=== PATIENT | female | born 1965 | race Caucasian/White ===

== ENCOUNTER → 2016-05-05 | Outpatient (CLI) | payer OTHER ==
[~2016-05-05] MED LIST: ACET-1256 PO; AMOX875T PO; CLR10 PO; CYAN100T PO; CYCL10TA6 PO; ERGO500037 PO; HYDR-3714 PO; LISI-461 PO; MELO15TA4 PO; MTR800 PO; ONDA4TAB10 SL; OXYC1TAB3 PO; PENI-82 PO; PRED20TA PO; PRLSR20 PO; SERT50TA PO; SUCR1TAB29 PO; URC10 PO; VNTHFA/IN INH; ZNTT/150 PO
[2016-05-05 17:46] LABS: ALT/SGPT 40 U/L (12-78); BLOOD UREA NITROGEN 17 mg/dl (7-18); BUN/CREATININE RATIO 20.9 (10-20); CALCIUM 9.8 mg/dl (8.5-10.1); CARBON DIOXIDE 26 mmol/L (21-32); CHLORIDE 103 mmol/L (98-107); CREATININE 0.82 mg/dl (0.60-1.20); GLUCOSE 83 mg/dl (70-99); POTASSIUM 4.5 mmol/L (3.5-5.1); SODIUM 140 mmol/L (136-145)
[2016-05-05 17:49] LABS: ALKALINE PHOSPHATASE 76 U/L (45-117); AST/SGOT 32 U/L (15-37)
== END | disposition home or self-care (01) ==
LOC: C.LABPVFM 16:04
PROVIDERS: ATTEND Nurse Practitioner
DX: M62.838 Other muscle spasm (principal); G25.81 Restless legs syndrome

== ENCOUNTER 2016-05-21 10:42 | Emergency (ER) | payer OTHER ==
[~2016-05-21] VITALS: Ht 162.6 cm; Wt 113.4 kg
[~2016-05-21 10:42] MED LIST changes: -ACET-1256 PO; -AMOX875T PO; -CLR10 PO; -CYAN100T PO; -CYCL10TA6 PO; -ERGO500037 PO; -HYDR-3714 PO; -LISI-461 PO; -MELO15TA4 PO; -ONDA4TAB10 SL; -OXYC1TAB3 PO; -PENI-82 PO; -PRED20TA PO; -PRLSR20 PO; -SERT50TA PO; -SUCR1TAB29 PO; -URC10 PO; -VNTHFA/IN INH; -ZNTT/150 PO
[2016-05-21 10:44] VITALS: TEMP 36.6; Ht 162.6 cm; Wt 113.4 kg
[2016-05-21] MEDS ORDERED: HYDROmorphone INJ 0.5 MG/0.5 ML SYR IV STA (11:03)
[2016-05-21] MEDS ORDERED: ONDANSETRON INJ 2 MG/ML 2 ML VIAL IV STA (11:03)
--- NOTE | 2016-05-21 11:06 | EMERGENCY ROOM VISIT NOTE ---
History First contact with patient: 10:49 Chief Complaint: PAIN (GENERALIZED) Stated Complaint: LT WRIST, BACK PAINS, RING FINGER, CYST History of Present Illness The patient is a 50 year old female who presents to the Emergency Room via private vehicle with complaints of "left wrist, back pains, ring finger, cyst" the patient states that she has developed pain of the left wrist and swelling on the dorsal aspect began yesterday. She does have a history of fracture in this region which occurred years ago. There is been no recent injury or trauma to the area. Patient is right-hand dominant. Patient also points to the dorsal aspect of the left fourth digit/ring finger pointing to a cyst that she was told was a ganglion cyst. She also has a history of kidney stones and points to the right lower back as a location of pain which she believes is a kidney stone. This pain has been persistent for over 1 year now. There is associated nausea. Her urologist is in [facility]. She has had recent trouble urinating. She says the back pain is getting worse 12/27. She denies any dysuria, vaginal discharge, hematuria, lower extremity weakness, bowel or bladder incontinence, numbness or tingling in the genital region, abdominal pain , chest pain, shortness of breath. Family doctor is with [facility]. Review of Systems A complete 10-point Review of Systems was discussed with the patient, with pertinent positives and negatives listed in the History of Present Illness. All remaining Review of Systems questions can be considered negative unless otherwise specified. Past Medical/Surgical History Medical Problems: (1) Asthma (2) HTN (hypertension) (3) Kidney stone Family History Cancer Diabetes mellitus Hypertension Social History Smoking Status: Never Smoker Alcohol Use: none Marital Status: Housing Status: lives with friends Occupation Status: unemployed Current/Historical Medications Scheduled Lisinopril (Zestril), 10 MG PO QAM Omeprazole (Prilosec), 20 MG PO BID Scheduled PRN Albuterol Hfa (Ventolin Hfa), 2-4 PUFFS INH Q6H PRN for SOB/Wheezing Ibuprofen (Ibuprofen), 1 TAB PO BID PRN for Pain Oxycodone Ir (Roxicodone Ir), 1-2 TAB PO Q4H PRN for Pain Ranitidine (Zantac), 150 MG PO BID PRN for Indigestion Allergies Coded Allergies: Morphine (Verified Allergy, Intermediate, HIVES, 05/21/16) Meperidine (Verified Adverse Reaction, Intermediate, NAUSEA, 05/21/16) Physical Exam Vital Signs Date Time Temp Pulse Resp B/P Pulse Ox O2 Delivery O2 Flow Rate FiO2 05/21/16 13:40 56 17 129/52 99 Room Air 05/21/16 10:44 36.6 64 18 157/91 97 Room Air Physical Exam VITAL SIGNS - Vital signs and nursing notes were reviewed. Patient is afebrile , hypertensive 157/91, non-tachycardic and is saturating well on room air 97%. GENERAL -50-year-old female appearing her stated age who is in no acute distress. Communicates well with provider and answers questions appropriately. SKIN - Without rashes. There is edema over the dorsal aspect of the left wrist. HEAD - NC/AT. EYES - Sclera anicteric. Palpebral conjunctiva pink and moist with no injection noted. EARS - No deformities of external structures noted on gross examination bilaterally. NOSE - Midline and without cyanosis. No epistaxis or purulent drainage noted. Septum midline without deviation or septal hematoma noted. MOUTH/OROPHARYNX - Without perioral cyanosis. NECK - Neck with FROM. LUNGS - Chest wall symmetric without accessory muscle use, intercostals retractions, or central cyanosis. Normal vesicular breath sounds CTA B/L. No wheezes, rales, or rhonchi appreciated. CARDIAC - RRR with S1/S2. No murmur, rubs, or gallops appreciated. ABDOMEN - Abdominal contour without pulsations or visible masses. BS normoactive all four quadrants. No tenderness, palpable masses, hepatosplenomegaly, or ascites noted. EXTREMITIES - No clubbing or peripheral cyanosis. No pretibial edema present. Patient is vascular intact. +5/5 strength noted in UE/LE bilaterally. There is tenderness to palpation overlying the left dorsal aspect of the wrist. There is no neurologic or vascular deficit. No bony abnormality noted. Slight edema of the dorsal aspect. Take Up Operator strength intact. MUSCULOSKELETAL: There is tenderness to palpation overlying the right paraspinous musculature and positive CVA tenderness on the right. Spine and left paraspinous musculature unremarkable. NEUROLOGIC - Cranial nerves II through XII grossly intact. Sensory intact to light touch throughout. PSYCH - A&Ox3 and cooperates fully with examiner. Pt is very pleasant and interacts well with examiner. Medical Decision & Procedures ER Provider Diagnostic Interpretation: ABDOMEN AND PELVIS CT WITHOUT CONTRAST CT DOSE: 1931.52 mGy.cm HISTORY: Flank pain Right flank pain, hx kidney stone TECHNIQUE: Multiaxial CT images of the abdomen and pelvis were performed without the use of intravenous and oral contrast according to the standard department stone protocol. COMPARISON STUDY: 01/15/2016 FINDINGS: Lung bases are clear. Liver spleen and pancreas are unremarkable. Kidneys demonstrate several nonobstructing renal calcifications bilaterally. Calcifications is similar in distribution compared to the prior study. There is no evidence for renal hydronephrosis. Multiple pelvic vascular calcifications are present. There is no evidence for an obstructing urinary tract calculus. Uterus is anteflexed. Bowel pattern overall is nonobstructive. The appendix is normal. IMPRESSION: 1. No evidence for an obstructing urinary tract calculus. 2. Normal appendix. 3. Several nonobstructing renal calcifications bilaterally. 4. No acute process Electronically signed by: Jaden Freeman M.D. 05/21/2016 12:30 PM Dictated Date/Time: 05/21/2016 12:24 PM LEFT WRIST 5 VIEWS CLINICAL HISTORY: Left wrist pain and swelling. FINDINGS: 5 views of the left wrist are compared to study dated 02/21/2016. The skeletal structures are well mineralized. No fracture is seen. There is mild negative ulnar variance. Minimal degenerative narrowing is present at the radiocarpal articulation. Mild soft tissue swelling is present around the wrist. IMPRESSION: Mild soft tissue swelling with no fracture identified. Electronically signed by: Almas Powell M.D. 05/21/2016 12:05 PM Dictated Date/Time: 05/21/2016 12:03 PM Laboratory Results 05/21/16 11:24 Red Blood Count 4.10, Mean Corpuscular Volume 84.9, Mean Corpuscular Hemoglobin 28.0, Mean Corpuscular Hemoglobin Concent 33.0, Mean Platelet Volume 9.3, Neutrophils (%) (Auto) 53.4, Lymphocytes (%) (Auto) 31.3, Monocytes (%) (Auto) 11.1, Eosinophils (%) (Auto) 3.3, Basophils (%) (Auto) 0.7, Neutrophils # (Auto ) 2.27, Lymphocytes # (Auto) 1.33, Monocytes # (Auto) 0.47, Eosinophils # (Auto ) 0.14, Basophils # (Auto) 0.03 05/21/16 11:24 Test 05/21/16 11:24 White Blood Count 4.25 K/uL (4.8-10.8) Red Blood Count 4.10 M/uL (4.2-5.4) Hemoglobin 11.5 g/dL (12.0-16.0) Hematocrit 34.8 % (37-47) Mean Corpuscular Volume 84.9 fL (80-100) Mean Corpuscular Hemoglobin 28.0 pg (25-34) Mean Corpuscular Hemoglobin Concent 33.0 g/dl (32-36) Platelet Count 180 K/uL (130-400) Mean Platelet Volume 9.3 fL (7.4-10.4) Neutrophils (%) (Auto) 53.4 % Lymphocytes (%) (Auto) 31.3 % Monocytes (%) (Auto) 11.1 % Eosinophils (%) (Auto) 3.3 % Basophils (%) (Auto) 0.7 % Neutrophils # (Auto) 2.27 K/uL (1.4-6.5) Lymphocytes # (Auto) 1.33 K/uL (1.2-3.4) Monocytes # (Auto) 0.47 K/uL (0.11-0.59) Eosinophils # (Auto) 0.14 K/uL (0-0.5) Basophils # (Auto) 0.03 K/uL (0-0.2) RDW Standard Deviation 43.7 fL (36.4-46.3) RDW Coefficient of Variation 14.1 % (11.5-14.5) Immature Granulocyte % (Auto) 0.2 % Immature Granulocyte # (Auto) 0.01 K/uL (0.00-0.02) Urine Color YELLOW Urine Appearance CLOUDY (CLEAR) Urine pH 5.5 (4.5-7.5) Urine Specific [place] 1.021 (1.000-1.030) Urine Protein NEG (NEG) Urine Glucose (UA) NEG (NEG) Urine Ketones NEG (NEG) Urine Occult Blood NEG (NEG) Urine Nitrite NEG (NEG) Urine Bilirubin NEG (NEG) Urine Urobilinogen NEG (NEG) Urine Leukocyte Esterase NEG (NEG) Urine WBC (Auto) 1-5 /hpf (0-5) Urine RBC (Auto) 0-4 /hpf (0-4) Urine Hyaline Casts (Auto) 1-5 /lpf (0-5) Urine Epithelial Cells (Auto) >30 /lpf (0-5) Urine Bacteria (Auto) 1+ (NEG) Urine Pathogenic Casts /lpf (0) Anion Gap 6.0 mmol/L (3-11) Est Creatinine Clear Calc Drug Dose 104.0 ml/min Estimated GFR () 100.5 Estimated GFR (Non- 86.7 BUN/Creatinine Ratio 15.7 (10-20) Calcium Level 8.8 mg/dl (8.5-10.1) Total Bilirubin 0.3 mg/dl (0.2-1) Aspartate Amino Transf (AST/SGOT) 31 U/L (15-37) Alanine Aminotransferase (ALT/SGPT) 39 U/L (12-78) Alkaline Phosphatase 96 U/L (45-117) Total Protein 7.6 gm/dl (6.4-8.2) Albumin 3.6 gm/dl (3.4-5.0) Globulin 4.0 gm/dl (2.5-4.0) Albumin/Globulin Ratio 0.9 (0.9-2) Medications Administered Medications (Trade) Dose Ordered Sig/Yazmin Route Start Time Stop Time Status Last Admin Dose Admin Hydromorphone HCl (Dilaudid Inj) 0.5 mg NOW STAT IV 05/21/16 11:03 05/21/16 11:05 DC 05/21/16 11:29 0.5 MG Ondansetron HCl (Zofran Inj) 4 mg NOW STAT IV 05/21/16 11:03 05/21/16 11:05 DC 05/21/16 11:29 4 MG Medical Decision Patient was seen and evaluated as above. After obtaining a thorough history and physical examination the above workup was completed. There was slight decrease in white blood cell count of 4.25 as well as mild anemia. CMP was completely unremarkable. Urine revealed 1+ bacteria but this is likely contaminated sample as her crit to [address] of the abdomen and pelvis without contrast were obtained to evaluate for potential stone as the patient does have a history of kidney stones. This was unremarkable for acute stone. She was educated upon these findings. There was reproducible pain in the right lumbar paraspinous musculature that I believe is causing her pain. There was swelling of the dorsal aspect left wrist therefore she was splinted with a wrist lacer. The patient does also have a ganglion cyst on the right fourth digit. She is to follow-up with orthopedic hand specialist regarding this, and was provided the phone number and instructed to call them as soon as possible. She was given 0.5 mg Dilaudid and 4 mg of Zofran here for pain. She did have relief of her pain. I do believe the patient this time is experiencing chronic low back pain, as well as left wrist pain. Rating her previous notes it appears that she has been here before for the same wrist complaint. She was given a short-term prescription for OxyIR. No red flags in the [place] drug monitoring system. I do not suspect any emergent or emergent surgical nature the patient's pain at this time. The patient was educated upon worrisome symptoms for which to return, had questions prior to discharge and was discharged home in good condition. In the evaluation treatment this patient the following differential diagnoses were entertained: Renal calculi, lumbar strain, acute exacerbation of chronic low back pain, left wrist fracture, left wrist contusion, left wrist sprain, ganglion cyst of right fourth finger, among others. [place] Drug Monitoring Program Search Results: patient reviewed within database, no issues identified Impression Primary Impression: Back pain Additional Impressions: Anemia Left wrist pain Departure Information Dispostion Home / Self-Care Condition GOOD Prescriptions Oxycodone Ir (Roxicodone Ir) 5 Mg Tab 1-2 TAB PO Q4H Y for Pain, #15 TAB For Initial Treatment Prov: Bertram Mas PA-C 05/21/16 Referrals Agustina Oliva C.R.N.P (PCP) Darryn Mahoney MD Patient Instructions [facility] Additional Instructions You have been treated in the Emergency Department for Back Pain. You have received pain medicine in the emergency department which impairs your ability to operate a vehicle. It is illegal for you to drive after receiving these medicines. Your blood cell count was a little low today and your slightly anemic. Please follow up with her family doctor to have these repeated. Please follow up with your family doctor regarding the CT scan results. They should be able to have a copy of this. You have been prescribed Oxy IR to be used for pain control. This is a narcotic medication. You cannot drive or consume alcohol while on this medicine. This medicine should only be used for pain that cannot be controlled with over-the- counter pain medicines. Please consider taking a stool softener with this. For pain control, you can use the following [id number] medicines (if >12 yo): - Regular strength (325mg/tab) Tylenol (acetaminophen) 2 tabs every 4-6 hours as needed. Do not exceed 12 tablets in a 24 hour period. Avoid taking more than 4 grams (4000 mg) of Tylenol per day. This includes any other sources of acetaminophen you may take on a regular basis. - Regular strength (200 mg/tab) Advil (ibuprofen) 1-2 tabs every 4-6 hours as needed. Do not exceed a dose of 3200 mg per day. If this is an acute injury, ice can be applied to the area of pain for the first 3 days to help decrease pain and inflammation. After the first 3 days, a heating pad can be used over the area for continued soothing relief. You should schedule a follow-up appointment in 2-3 days with your Primary Care Provider for further evaluation and treatment of your back pain. You have been provided the number for an Orthopaedic Surgeon. You should call this number as soon as possible to establish a follow-up visit from today's Emergency Department visit. Keep the brace/splint in place until evaluated by Orthopedics. Return to the Emergency Department if your current symptoms worsen despite treatment course outlined above, or if you develop any of the following symptoms : intractable pain despite aforementioned treatment course, loss of control of your bowel or bladder, numbness or tingling in your groin, or development of a fever. Please return to the emergency department with any new/concerning symptoms. Problem Qualifiers Primary Impression: Back pain Back pain location: low back pain Chronicity: chronic Back pain laterality : right Sciatica presence: without sciatica Qualified Codes: M54.5 - Low back pain; G89.29 - Other chronic pain Additional Impressions:
[2016-05-21 11:52] LABS: BASO % 0.7 %; BASO ABS # 0.03 K/uL (0-0.2); COMPLETE YES; EOS % 3.3 %; HEMATOCRIT 34.8 % (37-47); IG% 0.2 %; LYMPH % 31.3 %; LYMPH ABS # 1.33 K/uL (1.2-3.4); MEAN CELL VOLUME 84.9 fL (80-100); MEAN PLATELET VOLUME 9.3 fL (7.4-10.4); MONO % 11.1 %; NEUT % 53.4 %; PLATELET COUNT 180 K/uL (130-400); WHITE BLOOD COUNT 4.25 K/uL (4.8-10.8)
[2016-05-21 11:57] LABS: URINE APPEARANCE CLOUDY (CLEAR); URINE BILIRUBIN NEG (NEG); URINE COLOR YELLOW; URINE EPITHELIAL CELL AUTO >30 /lpf (0-5); URINE NITRITE NEG (NEG); URINE PH 5.5 (4.5-7.5); URINE SPECIFIC GRAVITY 1.021 (1.000-1.030); UROBILINOGEN NEG (NEG); ZZUR CULT IF INDIC CLEAN CATCH YES
--- NOTE | 2016-05-21 12:06 | DIAGNOSTIC IMAGING REPORT ---
LEFT WRIST 5 VIEWS CLINICAL HISTORY: Left wrist pain and swelling. FINDINGS: 5 views of the left wrist are compared to study dated 02/21/2016. The skeletal structures are well mineralized. No fracture is seen. There is mild negative ulnar variance. Minimal degenerative narrowing is present at the radiocarpal articulation. Mild soft tissue swelling is present around the wrist. IMPRESSION: Mild soft tissue swelling with no fracture identified. Electronically signed by: Almas Powell M.D. 05/21/2016 12:05 PM Dictated Date/Time: 05/21/2016 12:03 PM
[2016-05-21 12:08] LABS: BUN/CREATININE RATIO 15.7 (10-20); CALCIUM 8.8 mg/dl (8.5-10.1); CREATININE 0.79 mg/dl (0.60-1.20); POTASSIUM 4.1 mmol/L (3.5-5.1)
[2016-05-21 12:11] LABS: ALB/GLOB RATIO 0.9 (0.9-2)
[2016-05-21 12:13] LABS: MANUAL MICROSCOPIC REQUIRED? NO; REVIEW REQ? YES
--- NOTE | 2016-05-21 12:31 | DIAGNOSTIC IMAGING REPORT ---
ABDOMEN AND PELVIS CT WITHOUT CONTRAST CT DOSE: 1931.52 mGy.cm HISTORY: Flank pain Right flank pain, hx kidney stone TECHNIQUE: Multiaxial CT images of the abdomen and pelvis were performed without the use of intravenous and oral contrast according to the standard department stone protocol. COMPARISON STUDY: 01/15/2016 FINDINGS: Lung bases are clear. Liver spleen and pancreas are unremarkable. Kidneys demonstrate several nonobstructing renal calcifications bilaterally. Calcifications is similar in distribution compared to the prior study. There is no evidence for renal hydronephrosis. Multiple pelvic vascular calcifications are present. There is no evidence for an obstructing urinary tract calculus. Uterus is anteflexed. Bowel pattern overall is nonobstructive. The appendix is normal. IMPRESSION: 1. No evidence for an obstructing urinary tract calculus. 2. Normal appendix. 3. Several nonobstructing renal calcifications bilaterally. 4. No acute process Electronically signed by: Jaden Freeman M.D. 05/21/2016 12:30 PM Dictated Date/Time: 05/21/2016 12:24 PM
[2016-05-21] MEDS ORDERED: OXYC1TAB3 PO (12:55)
[2016-05-21 13:40] VITALS: BP 129/52; PULSE 56; O2SAT 99
[2016-09-18] MEDS ORDERED: HYDR-3714 PO (07:49)
[2016-10-18] MEDS ORDERED: ERGO500037 PO (10:39)
[2017-01-01] MEDS ORDERED: CYAN100T PO (10:39)
[2017-01-01] MEDS ORDERED: CLR10 PO (13:01)
[2017-01-01] MEDS ORDERED: PRLSR20 PO (14:19)
[2017-01-01] MEDS ORDERED: VNTHFA/IN INH (14:33)
[2017-01-01] MEDS ORDERED: CYCL10TA6 PO (15:46)
[2017-01-01] MEDS ORDERED: LISI-461 PO (15:56)
[2017-01-01] MEDS ORDERED: ZNTT/150 PO (16:35)
== END 2016-05-21 13:51 | disposition home or self-care (01) ==
LOC: C.EDB 10:43 → C.EDC 13:51
DX: M54.5 Low back pain (principal); G89.29 Other chronic pain; M25.532 Pain in left wrist; Z87.442 Personal history of urinary calculi; J45.909 Unspecified asthma, uncomplicated; I10 Essential (primary) hypertension; Z79.899 Other long term (current) drug therapy; D64.9 Anemia, unspecified

== ENCOUNTER → 2016-06-09 | Outpatient (CLI) | payer OTHER ==
[~2016-06-09] MED LIST changes: +ACET-1256 PO; +ALBINS/ INH; +AMOX875T PO; +CEFP100T7 PO; +CLR10 PO; +CYAN100T PO; +CYCL10TA6 PO; +DTRSR5 PO; +ERGO500037 PO; +HYDR-3714 PO; +HYDR-5688 PO; +LISI-461 PO; +MELO15TA4 PO; +ONDA4TAB10 SL; +ONDA4TAB46 SL; +OXYC1CAP5 PO; +OXYC1TAB3 PO; +PENI-82 PO; +PRED20TA PO; +PRLSR20 PO; +SERT50TA PO; +SUCR1TAB29 PO; +TAMS0.4C38 PO; +TRAM-10 PO; +URC10 PO; +VNTHFA/IN INH; +ZNTT/150 PO
== END | disposition home or self-care (01) ==
LOC: C.LABPVFM 11:16
PROVIDERS: ATTEND Nurse Practitioner
DX: J02.9 Acute pharyngitis, unspecified (principal)

== ENCOUNTER → 2016-08-24 | Outpatient (CLI) | payer OTHER ==
--- NOTE | 2016-08-24 09:15 | DIAGNOSTIC IMAGING REPORT ---
ABDOMEN 2VIEW W/PA CHEST RTN CLINICAL HISTORY: Right flank pain COMPARISON STUDY: 03/05/2016 FINDINGS: Erect chest reveals no free intraperitoneal air. There is no focal pulmonary consolidation. Erect and supine views the abdomen reveal no abnormally dilated loops of large or small bowel. There are no transition zones indicate bowel obstruction. The renal shadows are partially obscured overlying bowel gas. There is a probable 3 mm right renal calculus. There is also a suspected 2 mm left renal calculus. There are multiple nonspecific pelvic basin calcifications. If there is clinical concern over the presence of a right ureteral calculus, then a CT scan could be obtained in follow-up. IMPRESSION: 1. Suspected bilateral nephrolithiasis 2. No evidence of bowel obstruction. No evidence of free air 3. Multiple nonspecific right pelvic basin calcifications. Electronically signed by: Irwin Brown M.D. 08/24/2016 9:14 AM Dictated Date/Time: 08/24/2016 9:12 AM
== END | disposition home or self-care (01) ==
LOC: C.RADPV 08:43
PROVIDERS: ATTEND Family Medicine
DX: R10.9 Unspecified abdominal pain (principal)

== ENCOUNTER 2016-08-29 10:12 | Emergency (ER) | payer OTHER ==
[~2016-08-29] VITALS: Ht 162.6 cm; Wt 120.9 kg
[~2016-08-29 10:12] MED LIST changes: -ACET-1256 PO; -ALBINS/ INH; -AMOX875T PO; -CEFP100T7 PO; -CLR10 PO; -CYAN100T PO; -CYCL10TA6 PO; -DTRSR5 PO; -ERGO500037 PO; -HYDR-3714 PO; -HYDR-5688 PO; -LISI-461 PO; -MELO15TA4 PO; -ONDA4TAB10 SL; -ONDA4TAB46 SL; -OXYC1CAP5 PO; -PENI-82 PO; -PRED20TA PO; -PRLSR20 PO; -SERT50TA PO; -SUCR1TAB29 PO; -TAMS0.4C38 PO; -TRAM-10 PO; -URC10 PO; -VNTHFA/IN INH; -ZNTT/150 PO
[2016-08-29 10:23] VITALS: TEMP 36.8; Ht 162.6 cm; Wt 120.9 kg
[2016-08-29] MEDS ORDERED: ONDANSETRON INJ 2 MG/ML 2 ML VIAL IV STA (10:38)
[2016-08-29] MEDS ORDERED: SODIUM CHLORIDE 0.9% 1000ML 1,000 ML IV STA (10:38)
[2016-08-29] MEDS ORDERED: PENI-82 PO (10:39)
[2016-08-29] MEDS ORDERED: CYCL10TA6 PO (10:39)
[2016-08-29] MEDS ORDERED: HYDROmorphone INJ 0.5 MG/0.5 ML SYR IV ONE ×2 (10:45→11:45)
[2016-08-29 10:50] LABS: BASO % 0.6 %; BASO ABS # 0.04 K/uL (0-0.2); COMPLETE YES; EOS % 2.6 %; IG% 1.1 %; LYMPH % 28.1 %; LYMPH ABS # 1.81 K/uL (1.2-3.4); MEAN CELL VOLUME 79.8 fL (80-100); MEAN CORPUSCULAR HEMOGLOBIN 24.8 pg (25-34); MEAN CORPUSCULAR HGB CONC 31.1 g/dl (32-36); MEAN PLATELET VOLUME 9.1 fL (7.4-10.4); MONO % 9.3 %; NEUT % 58.3 %; PLATELET COUNT 235 K/uL (130-400); RED BLOOD COUNT 4.51 M/uL (4.2-5.4); WHITE BLOOD COUNT 6.44 K/uL (4.8-10.8)
[2016-08-29 11:03] LABS: URINE APPEARANCE CLEAR (CLEAR); URINE BILIRUBIN NEG (NEG); URINE COLOR DK YELLOW; URINE EPITHELIAL CELL AUTO >30 /lpf (0-5); URINE NITRITE NEG (NEG); URINE SPECIFIC GRAVITY 1.032 (1.000-1.030); UROBILINOGEN NEG (NEG); ZZUR CULT IF INDIC CLEAN CATCH NO
[2016-08-29 11:08] LABS: MANUAL MICROSCOPIC REQUIRED? NO; REVIEW REQ? YES
[2016-08-29 11:08] LABS: BUN/CREATININE RATIO 21.7 (10-20); CALCIUM 8.8 mg/dl (8.5-10.1); CREATININE 0.85 mg/dl (0.60-1.20)
[2016-08-29 11:15] LABS: URINE MUCUS PRESENT (NONE PRSENT)
--- NOTE | 2016-08-29 11:51 | DIAGNOSTIC IMAGING REPORT ---
ABDOMEN AND PELVIS CT WITHOUT CONTRAST CT DOSE: 1607.15 mGy.cm HISTORY: Severe right flank pain. TECHNIQUE: Multiaxial CT images of the abdomen and pelvis were performed without contrast. COMPARISON STUDY: Abdomen and pelvis CT 05/21/2016. FINDINGS: The lung bases are clear. No pneumoperitoneum. No pneumatosis. No fractures within the visualized osseous structures. Hepatic steatosis. The unenhanced spleen, pancreas, and adrenal glands are unremarkable. The gallbladder is not identified and likely surgically absent. There are few small bilateral renal calculi, unchanged. No hydronephrosis. The uterus and bladder are unremarkable. No retroperitoneal lymphadenopathy. Suboptimal evaluation for bowel pathology due to the lack of intravenous and oral contrast. However, there is no definite bowel wall thickening or obstruction. Normal appendix. IMPRESSION: 1. Bilateral nephrolithiasis. No hydronephrosis. 2. No definite bowel wall thickening or obstruction. 3. Normal appendix. Electronically signed by: Andrade Parr M.D. 08/29/2016 11:50 AM Dictated Date/Time: 08/29/2016 11:43 AM
[2016-08-29 12:35] VITALS: BP 126/80; PULSE 86; O2SAT 96
--- NOTE | 2016-08-29 13:57 | EMERGENCY ROOM VISIT NOTE ---
History Report prepared by Obinna: Fermín Leon Under the Supervision of: Dr. Figueroa Sanabria D.O. First contact with patient: 10:26 Chief Complaint: KIDNEY STONE Stated Complaint: GALL STONES, SEVERE PAIN ON RT SIDE History of Present Illness The patient is a 50 year old female who presents to the Emergency Room with complaints of persistent right flank pain for the past month. The pain wraps around the side to her right upper quadrant. The pain is worse when she is laying on the right side. The pain is consistent with past kidney stones for the patient, which she has had many times. She saw her family doctor five days ago and had an X-ray but no CT scans or ultrasounds due to insurance complications. The patient has additionally had two days of loose stools. She had three bouts this morning. The patient vomited two nights ago but not since. The patient is s/p cholecystectomy. Patient denies headache, change in vision, fevers, cough, rhinorrhea, chest pain, shortness of breath, nausea, pain with urination, and melena. Source of History: patient Onset: one month ago Position: back (right flank) Timing: other (persistent) Modifying Factors (Worsening): other (laying on right side) Associated Symptoms: + diarrhea, + vomiting, No SOB, No chest pain, No cough , No fevers, No headache, No melena, No nausea, No urinary symptoms Review of Systems See HPI for pertinent positives & negatives. A total of 10 systems reviewed and were otherwise negative. Past Medical & Surgical Medical Problems: (1) Asthma (2) HTN (hypertension) (3) Kidney stone Family History Cancer Diabetes mellitus Hypertension Social History Smoking Status: Never Smoker Alcohol Use: none Marital Status: Housing Status: lives with significant other Occupation Status: unemployed Current/Historical Medications Scheduled Cyanocobalamin (Vitamin B-12), 100 MCG PO DAILY Ergocalciferol (Vitamin D 17086 Unit), 50,000 UNIT PO WK Lisinopril (Zestril), 10 MG PO QAM Omeprazole (Prilosec), 20 MG PO BID Penicillin V Potassium (Veetids), 500 MG PO BID Scheduled PRN Albuterol Hfa (Ventolin Hfa), 2-4 PUFFS INH Q6H PRN for SOB/Wheezing Cyclobenzaprine Hcl (Flexeril), 5 MG PO DAILY PRN for Muscle Spasms Ibuprofen (Ibuprofen), 1 TAB PO BID PRN for Pain Ranitidine (Zantac), 150 MG PO BID PRN for Indigestion Allergies Coded Allergies: Morphine (Verified Allergy, Intermediate, HIVES, 08/29/16) Meperidine (Verified Adverse Reaction, Intermediate, NAUSEA, 08/29/16) Physical Exam Vital Signs Date Time Temp Pulse Resp B/P Pulse Ox O2 Delivery O2 Flow Rate FiO2 08/29/16 12:35 86 18 126/80 96 08/29/16 11:11 76 20 128/75 97 Room Air 08/29/16 10:23 36.8 79 18 143/76 97 Room Air Physical Exam GENERAL: Obese, disheveled, sitting up in bed. EYE EXAM: normal conjunctiva. OROPHARYNX: no exudate, no erythema, lips, buccal mucosa, and tongue normal and mucous membranes are moist NECK: supple, no nuchal rigidity, no adenopathy, non-tender LUNGS: Clear to auscultation. Normal chest wall mechanics HEART: no murmurs, S1 normal and S2 normal ABDOMEN: abdomen soft, acute reproducible tenderness in the right flank tracking to the right upper quadrant, normo-active bowel sounds, no masses, no rebound or guarding. BACK: Back is symmetrical on inspection and there is no deformity, no midline tenderness. SKIN: no rashes and no bruising UPPER EXTREMITIES: upper extremities are grossly normal. LOWER EXTREMITIES: No pitting edema. NEURO EXAM: Normal sensorium, cranial nerves II-XII grossly intact, normal speech, no gross weakness of arms, no gross weakness of legs. Gross sensation intact. Medical Decision & Procedures ER Provider Diagnostic Interpretation: Radiology results as stated below per my review and the radiologist's interpretation: ABDOMEN AND PELVIS CT WITHOUT CONTRAST CT DOSE: 1607.15 mGy.cm HISTORY: Severe right flank pain. TECHNIQUE: Multiaxial CT images of the abdomen and pelvis were performed without contrast. COMPARISON STUDY: Abdomen and pelvis CT 05/21/2016. FINDINGS: The lung bases are clear. No pneumoperitoneum. No pneumatosis. No fractures within the visualized osseous structures. Hepatic steatosis. The unenhanced spleen, pancreas, and adrenal glands are unremarkable. The gallbladder is not identified and likely surgically absent. There are few small bilateral renal calculi, unchanged. No hydronephrosis. The uterus and bladder are unremarkable. No retroperitoneal lymphadenopathy. Suboptimal evaluation for bowel pathology due to the lack of intravenous and oral contrast. However, there is no definite bowel wall thickening or obstruction. Normal appendix. IMPRESSION: 1. Bilateral nephrolithiasis. No hydronephrosis. 2. No definite bowel wall thickening or obstruction. 3. Normal appendix. Electronically signed by: Andrade Parr M.D. 08/29/2016 11:50 AM Dictated Date/Time: 08/29/2016 11:43 AM Laboratory Results 08/29/16 10:35 Red Blood Count 4.51, Mean Corpuscular Volume 79.8, Mean Corpuscular Hemoglobin 24.8, Mean Corpuscular Hemoglobin Concent 31.1, Mean Platelet Volume 9.1, Neutrophils (%) (Auto) 58.3, Lymphocytes (%) (Auto) 28.1, Monocytes (%) (Auto) 9.3, Eosinophils (%) (Auto) 2.6, Basophils (%) (Auto) 0.6, Neutrophils # (Auto) 3.75, Lymphocytes # (Auto) 1.81, Monocytes # (Auto) 0.60, Eosinophils # (Auto) 0.17, Basophils # (Auto) 0.04 08/29/16 10:35 Test 08/29/16 10:30 08/29/16 10:35 Urine Color DK YELLOW Urine Appearance CLEAR (CLEAR) Urine pH 6.0 (4.5-7.5) Urine Specific [place] 1.032 (1.000-1.030) Urine Protein NEG (NEG) Urine Glucose (UA) NEG (NEG) Urine Ketones NEG (NEG) Urine Occult Blood NEG (NEG) Urine Nitrite NEG (NEG) Urine Bilirubin NEG (NEG) Urine Urobilinogen NEG (NEG) Urine Leukocyte Esterase NEG (NEG) Urine WBC (Auto) 1-5 /hpf (0-5) Urine RBC (Auto) 0-4 /hpf (0-4) Urine Hyaline Casts (Auto) 1-5 /lpf (0-5) Urine Epithelial Cells (Auto) >30 /lpf (0-5) Urine Bacteria (Auto) NEG (NEG) Urine Renal Epithelial Cells /lpf (0-5) Urine Crystals CALCIUM OXALATE (NONE Urine Mucus PRESENT (NONE PRSENT) Urine Test NEG (NEG) White Blood Count 6.44 K/uL (4.8-10.8) Red Blood Count 4.51 M/uL (4.2-5.4) Hemoglobin 11.2 g/dL (12.0-16.0) Hematocrit 36.0 % (37-47) Mean Corpuscular Volume 79.8 fL (80-100) Mean Corpuscular Hemoglobin 24.8 pg (25-34) Mean Corpuscular Hemoglobin Concent 31.1 g/dl (32-36) Platelet Count 235 K/uL (130-400) Mean Platelet Volume 9.1 fL (7.4-10.4) Neutrophils (%) (Auto) 58.3 % Lymphocytes (%) (Auto) 28.1 % Monocytes (%) (Auto) 9.3 % Eosinophils (%) (Auto) 2.6 % Basophils (%) (Auto) 0.6 % Neutrophils # (Auto) 3.75 K/uL (1.4-6.5) Lymphocytes # (Auto) 1.81 K/uL (1.2-3.4) Monocytes # (Auto) 0.60 K/uL (0.11-0.59) Eosinophils # (Auto) 0.17 K/uL (0-0.5) Basophils # (Auto) 0.04 K/uL (0-0.2) RDW Standard Deviation 46.2 fL (36.4-46.3) RDW Coefficient of Variation 15.8 % (11.5-14.5) Immature Granulocyte % (Auto) 1.1 % Immature Granulocyte # (Auto) 0.07 K/uL (0.00-0.02) Anion Gap 7.0 mmol/L (3-11) Est Creatinine Clear Calc Drug Dose 100.4 ml/min Estimated GFR () 92.0 Estimated GFR (Non- 79.3 BUN/Creatinine Ratio 21.7 (10-20) Calcium Level 8.8 mg/dl (8.5-10.1) Total Bilirubin 0.3 mg/dl (0.2-1) Direct Bilirubin 0.1 mg/dl (0-0.2) Aspartate Amino Transf (AST/SGOT) 38 U/L (15-37) Alanine Aminotransferase (ALT/SGPT) 61 U/L (12-78) Alkaline Phosphatase 89 U/L (45-117) Total Protein 7.3 gm/dl (6.4-8.2) Albumin 3.4 gm/dl (3.4-5.0) Lipase 108 U/L (73-393) Laboratory results per my review. Medications Administered Medications (Trade) Dose Ordered Sig/Yazmin Route Start Time Stop Time Status Last Admin Dose Admin Sodium Chloride (Nss 1000ml) 1,000 ml @ 999 mls/hr Q1H1M STAT IV 08/29/16 10:38 08/29/16 11:38 DC 08/29/16 10:38 999 MLS/HR Hydromorphone HCl (Dilaudid Inj) 0.5 mg NOW ONCE IV 08/29/16 10:45 08/29/16 10:47 DC 08/29/16 11:09 0.5 MG Ondansetron HCl (Zofran Inj) 4 mg NOW STAT IV 08/29/16 10:38 08/29/16 10:39 DC 08/29/16 11:07 4 MG Hydromorphone HCl (Dilaudid Inj) 0.5 mg NOW ONCE IV 08/29/16 11:45 08/29/16 11:46 DC 08/29/16 11:45 0.5 MG ED Course ED COURSE: Vital signs were reviewed and were normal. The patients medical record was reviewed The above diagnostic studies were performed and reviewed. ED treatments and interventions as stated above. 1033: The patient was evaluated in room A12b. A complete history and physical examination was performed. 1038: Zofran 4 mg IV, NSS 1000 ml @ 999 mls/hr. 1045: Dilaudid 0.5 mg IV. 1145: Dilaudid 0.5 mg IV. 1220: Upon reevaluation, the patient is feeling better.I discussed my findings with the patient and she understands and agrees with the treatment plan. Based on the patients age, coexisting illnesses, exam and lab findings the decision to treat as an outpatient was made. The patient remained stable while under my care. The patient appeared well at the time of discharge. Medical Decision Differential diagnoses includes but is not limited to gastritis, peptic ulcer disease, GERD, gallbladder disease, pancreatitis, small bowel obstruction, acute coronary syndrome, pericarditis, ischemic bowel, irritable bowel disease, irritable bowel syndrome, appendicitis, diverticulitis, malignancy, hernia, urinary tract infection, torsion, /ectopic (if female), perforation, trauma, infectious. Patient is a 50-year-old female who presents the ER for right flank pain. She notes that starts in her back and wraps around to her right side. She notes that this feels exactly like her previous kidney stones. This pain has been there for the past month. CBC along with BMP, LFTs and bilirubin was unremarkable. Lipase is normal. UA was negative as well. was negative. She has a previous cholecystectomy. CT of abdomen and pelvis without contrast was negative for any acute stones. Her pain is clearly reproducible on exam. Patient is given an IV: Zofran. They were updated at bedside and they're were discharged to follow-up with her primary care doctor. Discussed with Pt concerning signs and symptoms to watch out for. Pt was instructed to follow up with their PCP and discussed with the patient their option to return to the ED at anytime for persistent or worsening symptoms. The appropriate anticipatory guidance and out-patient management, including indications for return to the emergency department, were explained at length to the patient and understood. Impression Primary Impression: Right flank pain Scribe Attestation The scribe's documentation has been prepared under my direction and personally reviewed by me in its entirety. I confirm that the note above accurately reflects all work, treatment, procedures, and medical decision making performed by me. Departure Information Dispostion Home / Self-Care Referrals No Doctor, Assigned (PCP) Forms HOME CARE DOCUMENTATION FORM, IMPORTANT VISIT INFORMATION Patient Instructions ED Flank Pain Uncertain Cause, My [facility] Additional Instructions Please follow up with your primary care doctor with in the next 24 hours. Any worsening of your symptoms, please return to the ED immediately. This includes fevers greater than 100.4, worsening pain, persistent nausea vomiting, passing out, blood in her stool, or any other concerning signs or symptoms from your standpoint. Please take Motrin/Tylenol as needed for pain.
[2016-09-18] MEDS ORDERED: HYDR-3714 PO (07:49)
[2016-10-18] MEDS ORDERED: ERGO500037 PO (10:39)
[2017-01-01] MEDS ORDERED: CYAN100T PO (10:39)
[2017-01-01] MEDS ORDERED: CLR10 PO (13:01)
[2017-01-01] MEDS ORDERED: PRLSR20 PO (14:19)
[2017-01-01] MEDS ORDERED: VNTHFA/IN INH (14:33)
[2017-01-01] MEDS ORDERED: CYCL10TA6 PO (15:46)
[2017-01-01] MEDS ORDERED: LISI-461 PO (15:56)
[2017-01-01] MEDS ORDERED: ZNTT/150 PO (16:35)
[2017-02-24] MEDS ORDERED: ONDA4TAB46 SL (15:14)
[2017-02-24] MEDS ORDERED: TAMS0.4C38 PO (15:14)
[2017-02-24] MEDS ORDERED: DTRSR5 PO (15:14)
[2017-02-24] MEDS ORDERED: ALBINS/ INH (15:20)
[2017-03-05] MEDS ORDERED: HYDR-5688 PO (12:07)
== END 2016-08-29 12:36 | disposition home or self-care (01) ==
LOC: C.EDB 10:15 → C.EDA 12:36
DX: R10.30 Lower abdominal pain, unspecified (principal); Z87.442 Personal history of urinary calculi; Z90.49 Acquired absence of other specified parts of digestive tract; J45.909 Unspecified asthma, uncomplicated; I10 Essential (primary) hypertension; Z80.9 Family history of malignant neoplasm, unspecified; Z83.3 Family history of diabetes mellitus; Z82.49 Family history of ischemic heart disease and other diseases of the circulatory system; Z79.899 Other long term (current) drug therapy; E66.9 Obesity, unspecified; Z68.42 Body mass index [BMI] 45.0-49.9, adult

== ENCOUNTER → 2016-09-10 | Outpatient (CLI) | payer OTHER ==
[~2016-09-10] MED LIST changes: +ACET-1256 PO; +ALBINS/ INH; +AMOX875T PO; +CEFP100T7 PO; +CLR10 PO; +CYAN100T PO; +CYCL10TA6 PO; +DTRSR5 PO; +ERGO500037 PO; +HYDR-3714 PO; +HYDR-5688 PO; +LISI-461 PO; +MELO15TA4 PO; +ONDA4TAB10 SL; +ONDA4TAB46 SL; +OXYC1CAP5 PO; +PENI-82 PO; +PRED20TA PO; +PRLSR20 PO; +SERT50TA PO; +SUCR1TAB29 PO; +TAMS0.4C38 PO; +TRAM-10 PO; +URC10 PO; +VNTHFA/IN INH; +ZNTT/150 PO
== END | disposition home or self-care (01) ==
LOC: C.LABSPEC 17:21
PROVIDERS: ATTEND Urology
DX: R31.29 Other microscopic hematuria (principal); N39.0 Urinary tract infection, site not specified

== ENCOUNTER → 2016-09-18 | Day surgery (SDC) | payer OTHER ==
[2016-09-11 15:47] VITALS: BMI 43.0
[2016-09-17 11:40] VITALS: Ht 162.6 cm; Wt 118.5 kg
--- NOTE | 2016-09-17 11:58 | PAT Medication Instructions ---
Service Date Sep 17, 2016. Current Home Medication List Albuterol Hfa (Ventolin Hfa), 2-4 PUFFS INH Q6H PRN for SOB/Wheezing Cyanocobalamin (Vitamin B-12), 100 MCG PO QAM Cyclobenzaprine Hcl (Flexeril), 10 MG PO TID PRN for Muscle Spasms Ergocalciferol (Vitamin D 86701 Unit), 50,000 UNIT PO WK Lisinopril (Zestril), 10 MG PO QAM Omeprazole (Prilosec), 20 MG PO BID Ranitidine (Zantac), 150 MG PO BID PRN for Indigestion Medication Instructions For Your Scheduled Surgery - Hold the following medications the morning of surgery: Lisinopril (Zestril), 10 MG PO QAM Cyanocobalamin (Vitamin B-12), 100 MCG PO QAM Cyclobenzaprine Hcl (Flexeril), 10 MG PO TID PRN for Muscle Spasms - Take the following medications the morning of surgery with a sip of water OTHERWISE NOTHING TO EAT OR DRINK AFTER MIDNIGHT: Ranitidine (Zantac), 150 MG PO BID PRN for Indigestion Omeprazole (Prilosec), 20 MG PO BID Albuterol Hfa (Ventolin Hfa), 2-4 PUFFS INH Q6H PRN for SOB/Wheezing - Take the following medications as scheduled the night before surgery: Ranitidine (Zantac), 150 MG PO BID PRN for Indigestion Omeprazole (Prilosec), 20 MG PO BID Albuterol Hfa (Ventolin Hfa), 2-4 PUFFS INH Q6H PRN for SOB/Wheezing Cyclobenzaprine Hcl (Flexeril), 10 MG PO TID PRN for Muscle Spasms If you have any questions please call us at [phone] or [phone] or [phone]
[2016-09-17 12:30] LABS: HEMATOCRIT 32.7 % (37-47); MEAN CELL VOLUME 78.8 fL (80-100); MEAN CORPUSCULAR HEMOGLOBIN 25.5 pg (25-34); MEAN CORPUSCULAR HGB CONC 32.4 g/dl (32-36); MEAN PLATELET VOLUME 9.2 fL (7.4-10.4); PLATELET COUNT 185 K/uL (130-400); RED BLOOD COUNT 4.15 M/uL (4.2-5.4); WHITE BLOOD COUNT 2.86 K/uL (4.8-10.8)
[2016-09-17 12:45] LABS: ALT/SGPT 66 U/L (12-78); AST/SGOT 54 U/L (15-37); BLOOD UREA NITROGEN 14 mg/dl (7-18); BUN/CREATININE RATIO 17.5 (10-20); CALCIUM 9.3 mg/dl (8.5-10.1); CARBON DIOXIDE 29 mmol/L (21-32); CHLORIDE 108 mmol/L (98-107); CREATININE 0.82 mg/dl (0.60-1.20); GLUCOSE 99 mg/dl (70-99); POTASSIUM 4.3 mmol/L (3.5-5.1); SODIUM 143 mmol/L (136-145)
[2016-09-17 12:48] LABS: ALKALINE PHOSPHATASE 66 U/L (45-117)
--- NOTE | 2016-09-17 13:02 | DIAGNOSTIC IMAGING REPORT ---
KUB CLINICAL HISTORY: Preoperative evaluation. Kidney stones. COMPARISON STUDY: CT of the abdomen and pelvis August 29, 2016. FINDINGS: A 3 mm calculus within the lower pole of the left kidney is noted. Pelvic calcifications reflect phleboliths, as shown on CT of August 29, 2016. A 5 mm calcification lateral to the right transverse process of L3 suggests a proximal right ureteral calculus. Additional right abdominal calcifications are unlikely to represent renal calculi. IMPRESSION: 1. 5 mm calcification lateral to the right transverse process of L3 which likely represents a proximal right ureteral/ureteropelvic junction calculus. 2. 3 mm left renal calculus. Electronically signed by: Andres Hernandez M.D. 09/17/2016 1:01 PM Dictated Date/Time: 09/17/2016 12:57 PM
--- NOTE | 2016-09-17 13:12 | DIAGNOSTIC IMAGING REPORT ---
CHEST 2 VIEWS ROUTINE CLINICAL HISTORY: Preoperative evaluation. COMPARISON STUDY: Chest radiograph August 24, 2016. FINDINGS: Lung volumes are normal. There is no pneumothorax or pleural effusion. Pulmonary vascularity is normal. Cardiac size is normal. There is no consolidation to suggest pneumonia. IMPRESSION: No acute cardiopulmonary findings. Electronically signed by: Andres Hernandez M.D. 09/17/2016 1:10 PM Dictated Date/Time: 09/17/2016 12:55 PM
[~2016-09-18] VITALS: Ht 162.6 cm; Wt 118.5 kg
[~2016-09-18] MED LIST changes: +ATROPINE SULFATE 0.1 MG/ML 5ML SYR IV PRN; +CIPROFLOXACIN 400MG / D5W IV SCH; +EpHEDrine SULFATE INJ 50 MG/ML AMP IV PRN; +FENTANYL CITRATE INJ 50 MCG/1 ML 2 ML VIAL IV PRN; +FENTANYL CITRATE INJ 50 MCG/1 ML 2 ML VIAL ONE; +FLUMAZENIL 0.1 MG/1 ML 10 ML VIAL IV PRN; +LABETALOL HCL IV 5 MG/ML 20ML IV PRN; +LACTATED RINGER'S 1000ML 1,000 ML IV SCH; +LIDOCAINE HCL 2% 2 ML VIAL (20MG/ML) ONE; +MIDAZOLAM HCL 1 MG/ML 2ML VIAL ONE; -MTR800 PO; +NALOXONE HCL 0.4 MG/1 ML VIAL/CARP IV PRN; +ONDANSETRON INJ 2 MG/ML 2 ML VIAL IV PRN; +OXYCODONE/ACETAMINOPHEN 5-325 TAB PO PRN; -PENI-82 PO; +PHENYLEPHRINE 100MCG/ML 5ML SYR IV PRN; +PROPOFOL IV EMULSION 10 MG/ML 20 ML VIAL IV ONE
--- NOTE | 2016-09-18 07:04 | History & Physical Bridge Note ---
H&P Re-Evaluation Bridge Note: I have examined the patient, reviewed the History & Physical and in the interval since the performance of the History & Physical I have noted the following changes of clinical significance: No changes noted
--- NOTE | 2016-09-18 07:52 | Discharge Instructions ---
Discharge Instructions Date of Service Sep 18, 2016. Admission Reason for Admission: Stones Discharge Discharge Diagnosis / Problem: R ureteral stone s/p ESWL Discharge Goals Goal(s): Decrease discomfort, Improve function, Improve disease control, Therapeutic intervention Activity Recommendations Activity Limitations: per Instructions/Follow-up section Lifting Limitations: no more than 25 pounds, gradually increase as tolerated ( rest x 5 days) Exercise/Sports Limitations: rest today, gradually increase as tolerated (rest x 5 days) Shower/Bathe: no limitations Driving or Machine Use: resume 1 day after discharge . Instructions / Follow-Up Instructions / Follow-Up Strain urine as instructed KUB Xray before follow-up visit in office Discharge Diet Recommended Diet: Regular Diet (good fluid intake) Procedures Procedures Performed: Right Extracorporeal Shock Wave Lithotripsy--ureteral Pending Studies Studies pending at discharge: no Medical Emergencies . Who to Call and When: Medical Emergencies: If at any time you feel your situation is an emergency, please call 911 immediately. . Non-Emergent Contact Non-Emergency issues call your: Urologist Call Non-Emergent contact if: you have a fever, temperature is above 101, your pain is not controlled, your pain is worsening, your pain is unusual for you, your pain is concerning you, you have any medication questions . . "Provider Documentation" section prepared by Suhas Early. . VTE Core Measure Inpt VTE Proph given/why not?: SCD's [place] Drug Monitoring Program Search Results: patient reviewed within database, see additional documentation (Rx for T&C #3 provided - patient did not tolerate per report)
--- NOTE | 2016-09-18 07:54 | [facility] Post Operative Brief Note ---
Immediate Operative Summary Operative Date Sep 18, 2016. Pre-Operative Diagnosis Right ureteral stone Post-Operative Diagnosis Same Procedure(s) Performed Right Extracorporeal Shock Wave Lithotripsy--ureteral Surgeon Dr Rolly Early Boat Builder Surgeon(s) 0 Estimated Blood Loss 0 Findings Good stone fragmentations on fluoro Specimens 0 Drains NA Anesthesia GALMA Complication(s) None Disposition Recovery Room / PACU
--- NOTE | 2016-09-18 08:04 | OPERATIVE REPORT ---
DATE OF OPERATION: 09/18/2016 PREOPERATIVE DIAGNOSIS: Right ureteral stone. POSTOPERATIVE DIAGNOSIS: Same. PROCEDURE: Right-sided extracorporeal shockwave lithotripsy of ureteral stones. SURGEON: Dr. Suhas Early. PRESS ASSISTANT: None. ANESTHESIA: General anesthesia with laryngeal mask. COMPLICATIONS: None. FINDINGS: Good stone fragmentation on fluoroscopy. DETAILS OF PROCEDURE: The patient was brought to the litho suite. He was correctly identified and the stone was visualized on his most recent x-rays. After the correct time out was performed the patient was positioned over the therapy head. An adequate level of anesthesia was administered. The extracorporeal shockwave lithotripsy treatment was then commenced. Please see the [place] [facility] sheet for complete treatment summary. After completion of the procedure the patient was taken to the recovery room in stable condition. I attest to the content of the Intraoperative Record and any orders documented therein. Any exception s are noted below.
--- NOTE | 2016-09-18 08:50 | Anesthesia Progress Nt - [facility] ---
Anesthesia Post Op Note Date & Time Sep 18, 2016 at 08:50 Vital Signs Pain Intensity: 2 Vital Signs Past 12 Hours Date Time Temp Pulse Resp B/P (MAP) Pulse Ox O2 Delivery O2 Flow Rate FiO2 09/18/16 08:27 90 17 164/89 98 09/18/16 08:27 89 17 09/18/16 08:26 37.0 89 20 155/87 99 Room Air 09/18/16 08:22 87 16 09/18/16 08:22 87 16 155/87 100 09/18/16 08:17 90 17 100 09/18/16 08:17 90 17 09/18/16 08:16 147/100 09/18/16 08:12 89 17 136/92 100 09/18/16 08:12 92 17 09/18/16 08:07 95 25 09/18/16 08:07 94 25 100 09/18/16 08:06 102 18 09/18/16 08:06 101 18 141/95 100 09/18/16 08:01 98 17 132/81 100 09/18/16 08:01 98 17 09/18/16 07:56 100 21 09/18/16 07:56 101 21 131/87 100 09/18/16 07:53 131/80 09/18/16 07:51 36.8 61 18 163/78 (106) 99 Room Air 09/18/16 07:51 36.3 103 20 131/80 99 Diffusion Mask 09/18/16 06:23 36.9 85 16 137/90 (106) 98 Room Air Notes Mental Status: alert / awake / arousable, participated in evaluation Pt Amnestic to Procedure: Yes Nausea / Vomiting: adequately controlled Pain: adequately controlled Airway Patency, RR, SpO2: stable & adequate BP & HR: stable & adequate Hydration State: stable & adequate Anesthetic Complications: no major complications apparent
[2016-09-18 08:55] VITALS: TEMP 36.4
[2016-09-18 09:15] VITALS: BP 151/92; PULSE 85; O2SAT 100
== END | disposition home or self-care (01) ==
LOC: X.SURG 06:00
PROVIDERS: ATTEND Urology
DX: N20.1 Calculus of ureter (principal); L30.9 Dermatitis, unspecified; I10 Essential (primary) hypertension; K21.9 Gastro-esophageal reflux disease without esophagitis; J45.909 Unspecified asthma, uncomplicated; G25.81 Restless legs syndrome; F41.8 Other specified anxiety disorders; Z79.899 Other long term (current) drug therapy

== ENCOUNTER → 2016-09-29 | Outpatient (CLI) | payer OTHER ==
[~2016-09-29] MED LIST changes: -ATROPINE SULFATE 0.1 MG/ML 5ML SYR IV PRN; -CIPROFLOXACIN 400MG / D5W IV SCH; -EpHEDrine SULFATE INJ 50 MG/ML AMP IV PRN; -FENTANYL CITRATE INJ 50 MCG/1 ML 2 ML VIAL IV PRN; -FENTANYL CITRATE INJ 50 MCG/1 ML 2 ML VIAL ONE; -FLUMAZENIL 0.1 MG/1 ML 10 ML VIAL IV PRN; -LABETALOL HCL IV 5 MG/ML 20ML IV PRN; -LACTATED RINGER'S 1000ML 1,000 ML IV SCH; -LIDOCAINE HCL 2% 2 ML VIAL (20MG/ML) ONE; -MIDAZOLAM HCL 1 MG/ML 2ML VIAL ONE; -NALOXONE HCL 0.4 MG/1 ML VIAL/CARP IV PRN; -ONDANSETRON INJ 2 MG/ML 2 ML VIAL IV PRN; -OXYCODONE/ACETAMINOPHEN 5-325 TAB PO PRN; -PHENYLEPHRINE 100MCG/ML 5ML SYR IV PRN; -PROPOFOL IV EMULSION 10 MG/ML 20 ML VIAL IV ONE
--- NOTE | 2016-09-29 12:20 | DIAGNOSTIC IMAGING REPORT ---
KUB CLINICAL HISTORY: NEPHROLITHIASIS COMPARISON STUDY: 09/17/2016 FINDINGS: The proximal right ureteral calculus produces described is not well seen currently. There is possibly that this is passed or is within the lower pole right kidney. Several pelvic vascular calcifications are unaltered. Small calcification previous described lower pole left kidney is not well seen. There is a small calcification at the lateral margin of the upper pole right kidney. IMPRESSION: 1. Bilateral renal calcifications a somewhat variable in appearance compared to the prior study. 2. The largest lower pole right kidney calcification potentially represents the previously described proximal right ureteral calculus 3. No evidence of this time for a current ureteral calculus. Electronically signed by: Jaden Freeman M.D. 09/29/2016 12:19 PM Dictated Date/Time: 09/29/2016 12:12 PM
== END | disposition home or self-care (01) ==
LOC: C.RADPV 11:31
PROVIDERS: ATTEND Urology
DX: N20.0 Calculus of kidney (principal)

== ENCOUNTER 2016-10-18 15:26 | Emergency (ER) | payer OTHER ==
[~2016-10-18] VITALS: Ht 162.6 cm; Wt 116.4 kg
[~2016-10-18 15:26] MED LIST changes: -ACET-1256 PO; -ALBINS/ INH; -AMOX875T PO; -CEFP100T7 PO; -CLR10 PO; -CYAN100T PO; -CYCL10TA6 PO; -DTRSR5 PO; -HYDR-5688 PO; -LISI-461 PO; -MELO15TA4 PO; -ONDA4TAB10 SL; -ONDA4TAB46 SL; -OXYC1CAP5 PO; -OXYC1TAB3 PO; -PRED20TA PO; -PRLSR20 PO; -SERT50TA PO; -SUCR1TAB29 PO; -TAMS0.4C38 PO; -TRAM-10 PO; -URC10 PO; -VNTHFA/IN INH; -ZNTT/150 PO
[2016-10-18 15:30] VITALS: TEMP 37.2; Ht 162.6 cm; Wt 116.4 kg
[2016-10-18 16:24] LABS: POINT OF CARE TROPONIN I < 0.030 ng/ml (0-0.045)
[2016-10-18 16:26] LABS: BASO % 0.8 %; BASO ABS # 0.04 K/uL (0-0.2); COMPLETE YES; HEMATOCRIT 35.8 % (37-47); IG% 0.2 %; LYMPH % 36.7 %; LYMPH ABS # 1.76 K/uL (1.2-3.4); MEAN CORPUSCULAR HEMOGLOBIN 23.2 pg (25-34); MEAN CORPUSCULAR HGB CONC 30.2 g/dl (32-36); MEAN PLATELET VOLUME 9.3 fL (7.4-10.4); MONO % 9.8 %; NEUT % 48.5 %; PLATELET COUNT 243 K/uL (130-400); RED BLOOD COUNT 4.65 M/uL (4.2-5.4)
[2016-10-18 16:27] VITALS: O2SAT 99
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
[2016-10-18 16:35] LABS: URINE APPEARANCE CLEAR (CLEAR); URINE BILIRUBIN NEG (NEG); URINE COLOR DK YELLOW; URINE EPITHELIAL CELL AUTO >30 /lpf (0-5); URINE NITRITE NEG (NEG); URINE PH 5.5 (4.5-7.5); URINE SPECIFIC GRAVITY 1.023 (1.000-1.030); UROBILINOGEN NEG (NEG); ZZUR CULT IF INDIC CLEAN CATCH NO
[2016-10-18 16:41] LABS: MANUAL MICROSCOPIC REQUIRED? NO; REVIEW REQ? NO
[2016-10-18 16:46] LABS: BUN/CREATININE RATIO 21.4 (10-20); CALCIUM 9.7 mg/dl (8.5-10.1); CREATININE 0.8 mg/dl (0.60-1.20); MAGNESIUM 1.9 mg/dl (1.8-2.4); POTASSIUM 3.9 mmol/L (3.5-5.1)
[2016-10-18] MEDS ORDERED: ACET-1256 PO (16:53)
[2016-10-18] MEDS ORDERED: HYDR-3714 PO (16:53)
[2016-10-18 16:57] LABS: THYROID STIMULATING HORMONE 1.87 uIu/ml (0.300-4.500)
--- NOTE | 2016-10-18 17:27 | DIAGNOSTIC IMAGING REPORT ---
PA CHEST WITH RIGHT-SIDED RIB SERIES CLINICAL HISTORY: Right lateral chest wall pain. Palpable lump. No reported history of trauma. FINDINGS: A PA chest radiograph with 4 additional views from a right-sided rib series is compared to study dated 09/17/2016. The examination is degraded by large body habitus. The cardiomediastinal silhouette is unremarkable. The lungs and pleural spaces are clear. No pneumothorax is seen. The skeletal structures are osteopenic. Degenerative change is seen throughout the thoracic spine. There is no radiographic evidence of right-sided rib fracture on the rib series. The remainder of the bony thorax is grossly intact. IMPRESSION: 1. No active disease in the chest. 2. Normal right-sided rib series. Electronically signed by: Almas Powell M.D. 10/18/2016 5:25 PM Dictated Date/Time: 10/18/2016 5:23 PM
[2016-10-18] MEDS ORDERED: HYDROmorphone INJ 1 MG/ML SYR IV STA (17:41)
[2016-10-18 17:58] LABS: PARTIAL THROMBOPLASTIN RATIO 0.8; PROTHROMBIN TIME (PATIENT) 10.8 SECONDS (9.0-12.0)
[2016-10-18 18:30] LABS: PREG INTERNAL NEGATIVE QC NEG CLEAR BACKGROUND; PREG INTERNAL POSITIVE QC POS CONTROL LINE
[2016-10-18] MEDS ORDERED: OPTIRAY 320 IV PRN (18:30)
--- NOTE | 2016-10-18 18:38 | DIAGNOSTIC IMAGING REPORT ---
CT SCAN OF THE ABDOMEN AND PELVIS WITH IV CONTRAST CLINICAL HISTORY: Right-sided abdominal pain. Hematuria. Elevated hepatic transaminases. COMPARISON STUDY: Abdominal CT dated 08/29/2016 TECHNIQUE: Following the IV administration of 116 cc of Optiray 320, CT scan of the abdomen and pelvis is performed from the lung bases to the proximal femora. Images are reviewed in the axial, sagittal, and coronal planes. IV contrast was administered without complication. Automated dose control exposure was utilized. The examination is degraded by large body habitus, and by streak artifact from the body wall abutting the CT gantry. CT DOSE: 1444.72 mGy.cm FINDINGS: Lung bases: The heart is normal in size and without pericardial effusion. The lung bases are clear. There is a tiny hiatal hernia. Liver: The contrast-enhanced liver is top normal in size and demonstrates diffusely diminished attenuation consistent with hepatic steatosis. There is minimal central intrahepatic biliary ductal dilatation. The hepatic veins and portal veins are patent. A calcified granulomas noted in the right hepatic lobe. Gallbladder: Surgically absent. Spleen: Normal in size and attenuation. Pancreas: Unremarkable. Adrenal glands: Unremarkable. Kidneys: The contrast enhanced kidneys are normal in size and without hydronephrosis. The kidneys enhance symmetrically. There are least 2 nonobstructing left calculi measuring up to 4 mm. A 6 mm nonobstructing calculus is noted in the right kidney. Abdominal vasculature: The abdominal aorta is normal in course and caliber. Bowel: The small bowel and colon are normal in course and caliber. There are scattered colonic diverticula without CT evidence of acute diverticulitis. The appendix is well-visualized and normal. Peritoneum: There is no intraperitoneal free air or abdominal ascites. Lymphadenopathy: None. Pelvic viscera: The bladder is normal as visualized. The endometrial stripe appears thickened measuring up to 2 cm. Small ovarian follicles are incidentally noted. Skeletal structures: The skeletal structures are osteopenic. There is mild lumbosacral spondylosis. No lytic or blastic lesions are seen. IMPRESSION: 1. There are no acute infectious or inflammatory findings in the abdomen or pelvis. 2. Severe hepatic steatosis. 3. Nonobstructing bilateral renal calculi. 4. The endometrial stripe appears thickened measuring up to 2 cm. This is likely within physiologic limits of the patient is premenopausal. If the patient is postmenopausal then this is abnormal and follow-up with gynecology and a nonemergent pelvic ultrasound should be considered. 5. Additional findings as above. Electronically signed by: Almas Powell M.D. 10/18/2016 6:37 PM Dictated Date/Time: 10/18/2016 6:27 PM
[2016-10-18] MEDS ORDERED: OXYCODONE IR HOME PACK PO STA (19:11)
[2016-10-18] MEDS ORDERED: OXYC1TAB3 PO (19:12)
--- NOTE | 2016-10-18 22:04 | DIAGNOSTIC IMAGING REPORT ---
ULTRASOUND BILATERAL LOWER EXTREMITY VENOUS CLINICAL HISTORY: Leg cramping and pain. COMPARISON STUDY: No priors. TECHNIQUE: Real-time, grayscale, and color Doppler sonography of the deep veins of the right and left lower extremity was performed from the inguinal crease to the calf. Compression and augmentation were utilized. FINDINGS: There is no sonographic evidence of deep venous thrombosis identified in the right or left lower extremity. The common femoral, superficial femoral, and popliteal veins are patent and normally compressible bilaterally. The greater saphenous vein and the profunda femoris vein at the junction with the common femoral vein are clear in both legs. The visualized calf veins are patent bilaterally. IMPRESSION: There is no sonographic evidence of deep venous thrombosis identified in the right or left lower extremity. Electronically signed by: Almas Powell M.D. 10/18/2016 10:03 PM Dictated Date/Time: 10/18/2016 10:02 PM
[2016-10-18 23:13] VITALS: BP 138/86; PULSE 78; O2SAT 98
[2017-01-01] MEDS ORDERED: CYAN100T PO (10:39)
[2017-01-01] MEDS ORDERED: CLR10 PO (13:01)
[2017-01-01] MEDS ORDERED: PRLSR20 PO (14:19)
[2017-01-01] MEDS ORDERED: VNTHFA/IN INH (14:33)
[2017-01-01] MEDS ORDERED: CYCL10TA6 PO (15:46)
[2017-01-01] MEDS ORDERED: LISI-461 PO (15:56)
[2017-01-01] MEDS ORDERED: ZNTT/150 PO (16:35)
== END 2016-10-18 23:14 | disposition home or self-care (01) ==
LOC: C.EDB 15:28 → C.EDC 23:14
DX: R10.9 Unspecified abdominal pain (principal); D64.9 Anemia, unspecified; K76.0 Fatty (change of) liver, not elsewhere classified; R74.0 Nonspecific elevation of levels of transaminase and lactic acid dehydrogenase [LDH]; J45.909 Unspecified asthma, uncomplicated; I10 Essential (primary) hypertension; Z87.442 Personal history of urinary calculi; Z80.9 Family history of malignant neoplasm, unspecified; Z83.3 Family history of diabetes mellitus; Z82.49 Family history of ischemic heart disease and other diseases of the circulatory system; Z79.899 Other long term (current) drug therapy

== ENCOUNTER 2016-12-17 11:41 | Emergency (ER) | payer OTHER ==
[~2016-12-17] VITALS: Ht 162.6 cm; Wt 119.5 kg
[~2016-12-17 11:41] MED LIST changes: +ACET-1256 PO; +OXYC1TAB3 PO
[2016-12-17 11:55] VITALS: TEMP 36.8; Ht 162.6 cm; Wt 119.5 kg
[2016-12-17] MEDS ORDERED: FENTANYL CITRATE INJ 50 MCG/1 ML 2 ML VIAL IV STA (12:26)
[2016-12-17] MEDS ORDERED: ONDANSETRON INJ 2 MG/ML 2 ML VIAL IV STA (12:26)
[2016-12-17 12:49] LABS: URINE APPEARANCE CLOUDY (CLEAR); URINE BILIRUBIN NEG (NEG); URINE COLOR DK YELLOW; URINE EPITHELIAL CELL AUTO >30 /lpf (0-5); URINE NITRITE NEG (NEG); URINE PH 6.5 (4.5-7.5); URINE SPECIFIC GRAVITY 1.026 (1.000-1.030); UROBILINOGEN NEG (NEG)
[2016-12-17 12:59] LABS: MANUAL MICROSCOPIC REQUIRED? NO; REVIEW REQ? YES
[2016-12-17] MEDS ORDERED: SUCR1TAB29 PO (13:01)
[2016-12-17 13:09] LABS: BASO % 0.5 %; BASO ABS # 0.02 K/uL (0-0.2); COMPLETE YES; EOS % 3.3 %; LYMPH % 40.3 %; LYMPH ABS # 1.57 K/uL (1.2-3.4); MEAN CELL VOLUME 79.4 fL (80-100); MEAN CORPUSCULAR HEMOGLOBIN 25.7 pg (25-34); MEAN CORPUSCULAR HGB CONC 32.3 g/dl (32-36); MEAN PLATELET VOLUME 9.1 fL (7.4-10.4); MONO % 12.8 %; NEUT % 43.1 %; PLATELET COUNT 166 K/uL (130-400); RED BLOOD COUNT 4.91 M/uL (4.2-5.4)
[2016-12-17 13:33] LABS: ALT/SGPT 60 U/L (12-78); AST/SGOT 33 U/L (15-37); BLOOD UREA NITROGEN 20 mg/dl (7-18); BUN/CREATININE RATIO 24.1 (10-20); CALCIUM 9.5 mg/dl (8.5-10.1); CARBON DIOXIDE 30 mmol/L (21-32); CHLORIDE 108 mmol/L (98-107); CREATININE 0.81 mg/dl (0.60-1.20); GLUCOSE 85 mg/dl (70-99); POTASSIUM 4.4 mmol/L (3.5-5.1); SODIUM 139 mmol/L (136-145)
[2016-12-17 13:36] LABS: ALKALINE PHOSPHATASE 85 U/L (45-117)
--- NOTE | 2016-12-17 14:50 | DIAGNOSTIC IMAGING REPORT ---
LUMBAR SPINE 5 VIEWS HISTORY: low back pain eval for fx COMPARISON: None. FINDINGS: There is no fracture. No subluxation. Endplate osteophytes within the lower thoracic spine. Mild facet degenerative changes within the lower lumbar spine. Mild disc space area L5-S1. There are hypoplastic ribs at the T12 level. There are few small bilateral renal calculi with the largest in the lower pole the right kidney measuring 4 mm. Calcifications in the deep pelvis are nonspecific but favor phleboliths. IMPRESSION: No fracture or subluxation within the lumbar spine. Mild degenerative disc disease at L5-S1. Bilateral nephrolithiasis. Electronically signed by: Andrade Parr M.D. 12/17/2016 2:49 PM Dictated Date/Time: 12/17/2016 2:33 PM
[2016-12-17] MEDS ORDERED: PRED20TA PO (14:52)
[2016-12-17 15:13] VITALS: BP 146/90; PULSE 65; O2SAT 98
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
[2017-01-01] MEDS ORDERED: CYAN100T PO (10:39)
[2017-01-01] MEDS ORDERED: CLR10 PO (13:01)
[2017-01-01] MEDS ORDERED: PRLSR20 PO (14:19)
[2017-01-01] MEDS ORDERED: VNTHFA/IN INH (14:33)
[2017-01-01] MEDS ORDERED: CYCL10TA6 PO (15:46)
[2017-01-01] MEDS ORDERED: LISI-461 PO (15:56)
[2017-01-01] MEDS ORDERED: ZNTT/150 PO (16:35)
== END 2016-12-17 15:15 | disposition home or self-care (01) ==
LOC: EDBD 11:41 → C.EDC 11:42
DX: M54.42 Lumbago with sciatica, left side (principal); R07.81 Pleurodynia; I10 Essential (primary) hypertension; J45.909 Unspecified asthma, uncomplicated; Z87.442 Personal history of urinary calculi; Z79.899 Other long term (current) drug therapy; Z88.5 Allergy status to narcotic agent; Z88.8 Allergy status to other drugs, medicaments and biological substances; Z80.9 Family history of malignant neoplasm, unspecified; Z83.3 Family history of diabetes mellitus; Z83.79 Family history of other diseases of the digestive system; Z82.41 Family history of sudden cardiac death; Z84.1 Family history of disorders of kidney and ureter; Z82.0 Family history of epilepsy and other diseases of the nervous system

== ENCOUNTER 2017-01-01 22:15 | Emergency (ER) | payer OTHER ==
[~2017-01-01] VITALS: Ht 162.6 cm; Wt 120.0 kg
[~2017-01-01 22:15] MED LIST changes: -ACET-1256 PO; +CLR10 PO; +CYAN100T PO; +CYCL10TA6 PO; -HYDR-3714 PO; +LISI-461 PO; -OXYC1TAB3 PO; +PRED20TA PO; +PRLSR20 PO; +SUCR1TAB29 PO; +VNTHFA/IN INH; +ZNTT/150 PO
[2017-01-01 22:17] VITALS: TEMP 37; Ht 162.6 cm; Wt 120.0 kg
[2017-01-01] MEDS ORDERED: KETOROLAC TROMETHAMINE 30 MG/ML VIAL IV STA (22:34)
[2017-01-01] MEDS ORDERED: ONDANSETRON INJ 2 MG/ML 2 ML VIAL IV STA (22:34)
[2017-01-01] MEDS ORDERED: DiphenhydrAMINE HCL 50 MG/ML VIAL IV STA (22:34)
--- NOTE | 2017-01-01 22:50 | DIAGNOSTIC IMAGING REPORT ---
CHEST ONE VIEW PORTABLE CLINICAL HISTORY: 51 years-old Female presenting with cough. TECHNIQUE: Portable upright AP view of the chest was obtained. COMPARISON: 09/17/2016. FINDINGS: Cardiomediastinal silhouette normal. Lungs and pleural spaces clear. Osseous structures normal. Upper abdomen normal. IMPRESSION: 1. No acute cardiopulmonary disease. Electronically signed by: Mark Clark M.D. 01/01/2017 10:49 PM Dictated Date/Time: 01/01/2017 10:48 PM
[2017-01-01 22:59] LABS: BASO % 0.4 %; BASO ABS # 0.02 K/uL (0-0.2); COMPLETE YES; HEMATOCRIT 38.3 % (37-47); IG% 0.2 %; LYMPH % 29.1 %; LYMPH ABS # 1.47 K/uL (1.2-3.4); MEAN CELL VOLUME 79.5 fL (80-100); MEAN CORPUSCULAR HEMOGLOBIN 25.7 pg (25-34); MEAN CORPUSCULAR HGB CONC 32.4 g/dl (32-36); MEAN PLATELET VOLUME 9.1 fL (7.4-10.4); MONO % 13.9 %; NEUT % 53.4 %; PLATELET COUNT 161 K/uL (130-400); RED BLOOD COUNT 4.82 M/uL (4.2-5.4); WHITE BLOOD COUNT 5.05 K/uL (4.8-10.8)
[2017-01-01] MEDS ORDERED: SERT50TA PO (22:59)
[2017-01-01] MEDS ORDERED: MELO15TA4 PO (22:59)
[2017-01-01] MEDS ORDERED: URC10 PO (22:59)
--- NOTE | 2017-01-01 23:00 | EMERGENCY ROOM VISIT NOTE ---
History First contact with patient: 22:23 Chief Complaint: HEADACHE Stated Complaint: HEADACHE, NAUSEA, VOMITING, COLD LIKE SX History of Present Illness The patient is a 51 year old female who presents to the Emergency Room with complaints of a headache, nausea and vomiting for the last 2 days. She describes this headache as a throbbing sensation in the front and back of her head. She tried to take Tylenol, but vomited right afterwards. She denies any changes in vision. She denies any severe neck pain. She has also had a nonproductive cough. She felt warm, but did not take her temperature at home. She denies any abdominal pain. She does have photosensitivity. She reports having one similar headache in the past. Review of Systems 10 system review performed and negative unless noted in HPI or below Past Medical/Surgical History Medical Problems: (1) Asthma (2) HTN (hypertension) (3) Kidney stone Family History Cancer Diabetes mellitus FHx: gallbladder disease Hypertension Kidney disease Seizures Social History Smoking Status: Never Smoker Alcohol Use: none Marital Status: Housing Status: lives with significant other Occupation Status: unemployed Current/Historical Medications Scheduled Amoxicillin & Pot Clavulanate (Augmentin 875-125 mg), 1 TAB PO BID Cyanocobalamin (Vitamin B-12), 100 MCG PO QAM Lisinopril (Zestril), 10 MG PO QAM Meloxicam (Mobic), 7.5 MG PO BID Omeprazole (Prilosec), 20 MG PO BID Ondasetron Odt (Zofran Odt), 4 MG SL Q6H Potassium Citrate (Potassium Citrate), 10 MEQ PO DAILY Sertraline (Zoloft), 50 MG PO DAILY Sucralfate (Carafate), 1 TAB PO ACHS Scheduled PRN Albuterol Hfa (Ventolin Hfa), 2-4 PUFFS INH Q6H PRN for SOB/Wheezing Cyclobenzaprine Hcl (Flexeril), 10 MG PO TID PRN for Muscle Spasm Loratadine (Claritin), 10 MG PO DAILY PRN for Seasonal Allergies Ranitidine (Zantac), 150 MG PO BID PRN for Indigestion Physical Exam Vital Signs Date Time Temp Pulse Resp B/P (MAP) Pulse Ox O2 Delivery O2 Flow Rate FiO2 01/02/17 00:39 84 18 142/83 97 Room Air 01/02/17 00:02 87 18 147/98 93 Room Air 01/01/17 23:44 92 18 151/109 97 Room Air 01/01/17 22:17 37.0 89 18 166/112 97 Room Air Physical Exam VITALS: Vitals are noted on the nurse's note and reviewed by myself. Vital signs stable. GENERAL: 51-year-old female, in no acute distress, nondiaphoretic, well- developed well-nourished. SKIN: The skin was without rashes, erythema, edema, or bruising. HEAD: Normocephalic atraumatic. EARS: External auditory canals clear, tympanic membranes pearly jerez without erythema or effusion bilaterally. EYES: Pupils equal round and reactive to light and accommodation. Conjunctivae without injection, sclerae without icterus. Extraocular movements intact. MOUTH: Mucous membranes slightly dry. Tonsils are not enlarged. Pharynx without erythema or exudate. Uvula midline. Airway patent. Tongue does not deviate. NECK: Supple without nuchal rigidity. No lymphadenopathy. Cervical spine is nontender. No JVD. HEART: Regular rate and rhythm without murmurs gallops or rubs. LUNGS: Clear to auscultation bilaterally without wheezes, rales or rhonchi. No accessory muscle use. ABDOMEN: Positive bowel sounds x 4.Soft, nontender, without organomegaly. No guarding or rebound tenderness. MUSCULOSKELETAL: No muscle atrophy, erythema, or edema noted. Strength 5/5 throughout. NEURO: Patient was alert and oriented to person place and time. Cerebellar function intact. Cranial nerves grossly intact. Normal sensation to touch. No focal neurological deficits. Medical Decision & Procedures ER Provider Diagnostic Interpretation: CT head with no intracranial abnormality. Please see report for details. Patient Name: DAFNE LEGER Unit Number: [id number] Dictated: 01/01/172247 Transcribed: 01/01/172247 PBS Printed Date/Time: [~ rep prt dt]/[~ rep prt tm] [~ rep ct labl] - [~ rep ct ivnm] [facility] [place] [place] [address] Dictated: 01/01/172247 Transcribed: 01/01/172247 PBS Printed Date/Time: [~ rep prt dt]/[~ rep prt tm] [~ rep ct labl] - [~ rep ct ivnm] CHEST ONE VIEW PORTABLE CLINICAL HISTORY: 51 years-old Female presenting with cough. TECHNIQUE: Portable upright AP view of the chest was obtained. COMPARISON: 09/17/2016. FINDINGS: Cardiomediastinal silhouette normal. Lungs and pleural spaces clear. Osseous structures normal. Upper abdomen normal. IMPRESSION: 1. No acute cardiopulmonary disease. Electronically signed by: Mark Clark M.D. 01/01/2017 10:49 PM Dictated Date/Time: 01/01/2017 10:48 PM The status of this report is Signed. Draft = Not yet reviewed or approved by Radiologist. Signed = Reviewed and approved by Radiologist. <AttendingPhy></AttendingPhy> <FamilyPhy>Calderon Early D.O.</FamilyPhy> < PrimaryPhy>Mike Jensen M.D.</PrimaryPhy> <UnitNumber>[id number]</ UnitNumber> <VisitNumber>[id number]</VisitNumber> <PatientName>DAFNE LEGER </PatientName> <DateOfBirth>1965</DateOfBirth> <Location>C.[facility]</Location> <ServiceDate>01/01/17</ServiceDate> <MNE>ESINDI</MNE> <OrderingPhy>Irene Liz PA-C</OrderingPhy> <OrderingPhyMNE>f rep ord dr curtis</OrderingPhyMNE> < DictatingPhyMNE>f rep dict dr curtis</DictatingPhyMNE> <CCListMNE>f rep ct mne</ CCListMNE> <AdmittingPhyMNE>f pt admit dr curtis</AdmittingPhyMNE> <AttendingPhyMNE >f pt attend dr curtis</AttendingPhyMNE> <ConsultingPhyMNE>f pt consult dr curtis</ConsultingPhyMNE> <FamilyPhyMNE>f pt fam dr curtis</FamilyPhyMNE> <OtherPhyMNE>f pt other dr curtis</OtherPhyMNE> < PrimaryPhyMNE>f pt prim care dr mne</PrimaryPhyMNE> <ReferringPhyMNE>f pt referring mndeven</ReferringPhyMNE> Laboratory Results 01/01/17 22:20 Red Blood Count 4.82, Mean Corpuscular Volume 79.5, Mean Corpuscular Hemoglobin 25.7, Mean Corpuscular Hemoglobin Concent 32.4, Mean Platelet Volume 9.1, Neutrophils (%) (Auto) 53.4, Lymphocytes (%) (Auto) 29.1, Monocytes (%) (Auto) 13.9, Eosinophils (%) (Auto) 3.0, Basophils (%) (Auto) 0.4, Neutrophils # (Auto ) 2.70, Lymphocytes # (Auto) 1.47, Monocytes # (Auto) 0.70, Eosinophils # (Auto ) 0.15, Basophils # (Auto) 0.02 01/01/17 22:20 Test 01/01/17 22:20 01/01/17 22:45 White Blood Count 5.05 K/uL (4.8-10.8) Red Blood Count 4.82 M/uL (4.2-5.4) Hemoglobin 12.4 g/dL (12.0-16.0) Hematocrit 38.3 % (37-47) Mean Corpuscular Volume 79.5 fL (80-100) Mean Corpuscular Hemoglobin 25.7 pg (25-34) Mean Corpuscular Hemoglobin Concent 32.4 g/dl (32-36) Platelet Count 161 K/uL (130-400) Mean Platelet Volume 9.1 fL (7.4-10.4) Neutrophils (%) (Auto) 53.4 % Lymphocytes (%) (Auto) 29.1 % Monocytes (%) (Auto) 13.9 % Eosinophils (%) (Auto) 3.0 % Basophils (%) (Auto) 0.4 % Neutrophils # (Auto) 2.70 K/uL (1.4-6.5) Lymphocytes # (Auto) 1.47 K/uL (1.2-3.4) Monocytes # (Auto) 0.70 K/uL (0.11-0.59) Eosinophils # (Auto) 0.15 K/uL (0-0.5) Basophils # (Auto) 0.02 K/uL (0-0.2) RDW Standard Deviation 51.0 fL (36.4-46.3) RDW Coefficient of Variation 17.6 % (11.5-14.5) Immature Granulocyte % (Auto) 0.2 % Immature Granulocyte # (Auto) 0.01 K/uL (0.00-0.02) Anion Gap 4.0 mmol/L (3-11) Est Creatinine Clear Calc Drug Dose 113.5 ml/min Estimated GFR () 108.0 Estimated GFR (Non- 93.1 BUN/Creatinine Ratio 12.0 (10-20) Calcium Level 9.8 mg/dl (8.5-10.1) Total Bilirubin 0.5 mg/dl (0.2-1) Aspartate Amino Transf (AST/SGOT) 40 U/L (15-37) Alanine Aminotransferase (ALT/SGPT) 67 U/L (12-78) Alkaline Phosphatase 94 U/L (45-117) Total Protein 7.8 gm/dl (6.4-8.2) Albumin 3.7 gm/dl (3.4-5.0) Globulin 4.1 gm/dl (2.5-4.0) Albumin/Globulin Ratio 0.9 (0.9-2) Urine Test NEG (NEG) Medications Administered Medications (Trade) Dose Ordered Sig/Yazmin Route Start Time Stop Time Status Last Admin Dose Admin Ondansetron HCl (Zofran Inj) 4 mg NOW STAT IV 01/01/17 22:34 01/01/17 22:36 DC 01/01/17 22:38 4 MG Diphenhydramine HCl (Benadryl Inj) 25 mg NOW STAT IV 01/01/17 22:34 01/01/17 22:36 DC 01/01/17 22:38 25 MG Ketorolac Tromethamine (Toradol Inj) 30 mg NOW STAT IV 01/01/17 22:34 01/01/17 22:36 DC 01/01/17 22:38 30 MG Metoclopramide HCl (Reglan Inj) 10 mg NOW STAT IV 01/01/17 23:01 01/01/17 23:02 DC 01/01/17 23:06 10 MG Sodium Chloride 1,000 ml @ 999 mls/hr Q1H1M ONCE IV 01/01/17 23:15 01/02/17 00:15 DC 01/01/17 23:11 999 MLS/HR Hydromorphone HCl (Dilaudid Inj) 1 mg ONE ONCE IV 01/01/17 23:45 01/01/17 23:46 DC 01/01/17 23:40 1 MG Lisinopril (Zestril Tab) 10 mg NOW ONCE PO 01/01/17 23:45 01/01/17 23:46 DC 01/01/17 23:40 10 MG ED Course Patient was seen and examined Vital signs including blood pressure were reviewed medications list was verified with patient Labs were obtained, and a saline lock was established The patient was given Zofran 4 mg IV, Reglan 10 mg IV, Toradol 10 mg IV and Benadryl 25 mg IV She was hydrated with 1 L of normal saline Imaging was performed and reviewed The patient was reassessed and sleeping. When I aroused her, she was still complaining of a headache. She was given Dilaudid 1 mg IV. Her blood pressure was elevated. She was given lisinopril 10 mg. The blood pressure improved Upon reevaluation, the patient was again sleeping. This time, her headache was improved. She was given a dose of Augmentin 875 mg. She was also given a home pack of Zofran. I reviewed discharge instructions the patient. They voiced understanding and had no further questions. Medical Decision Differential includes: Migraine, bronchitis, pneumonia, Acute intracranial bleed , trauma, meningitis, encephalitis, increased intracranial pressure, mass or mass effect, facial or dental infection, temporal arteritis, CVA, TIA, acute hypertensive emergency, sinusitis, carbon monoxide exposure This patient is a 51-year-old female that presents emergency department with a headache, vomiting and respiratory symptoms. Her neurologic exam is intact. She has no nuchal rigidity to suggest meningitis on exam. She is afebrile. There is no leukocytosis. Her chest x-ray is clear. No signs of pneumonia. She does not frequently get headaches, which is why a CT of her head was ordered. No intracranial abnormality was noted. She does however have sinusitis, which could be contributing to her headache. This will be treated with a ten-day course of Augmentin. The patient had good symptomatically in the emergency department. She was hydrated with 1 L of normal saline and given a home pack of Zofran to go. She was encouraged to rest and stay well-hydrated over the next few days. She was instructed to take probiotic while taking Augmentin. She will take Tylenol and ibuprofen as needed for headache. She was instructed to follow-up with her primary care physician in the next 3 days for a recheck. She was also instructed to return to the emergency department with any new or worsening symptoms. She was comfortable with this plan, and discharged in good condition. This chart was completed in part utilizing [employer] Speech Voice Recognition software. Attempts were made to minimize the grammatical errors, random word insertions, pronoun errors and incomplete sentences. Any formal questions or concerns about the content, text or information contained within the body of this dictation should be directly addressed to the provider for clarification. Blood Pressure Screening Patient's blood pressure: Elevated blood pressure Blood pressure disposition: Elevated BP felt to be situational Impression Primary Impression: Sinusitis Additional Impression: Headache Departure Information Dispostion Home / Self-Care Condition GOOD Prescriptions Ondasetron Odt (ZOFRAN ODT) 4 Mg Tab 4 MG SL Q6H for Nausea, #15 TAB Prov: Irene Liz PA-C 01/02/17 Amoxicillin & Pot Clavulanate (Augmentin 875-125 mg) 1 Tab Tab 1 TAB PO BID for 10 Days, #19 TAB Prov: Irene Liz PA-C 01/02/17 Referrals Mike Jensen M.D. (PCP) Patient Instructions ED Headache Sinus, ED Sinusitis Abx Tx, My [facility] Additional Instructions You had been treated in the emergency department for a headache. It was found that he likely also have a sinus infection. This needs to be treated with a 10 day course of antibiotics. Please finish the entire course of antibiotics even if you are feeling better. Please take a probiotic, which and be purchased [id number] while taking this antibiotic. Tylenol and ibuprofen as needed for pain Ibuprofen 800 mg and/or Tylenol 1000 mg every 8 hours. You may also alternate these medications for more effective pain relief: Ibuprofen --4 HRS--> Tylenol --4 HRS--> ibuprofen --4 HRS--> Tylenol .... Please take Zofran every 6 hours as needed for nausea It is important to increase your fluids over the next several days with this infection. Please follow-up with your primary care physician in 3 days for recheck Return to the emergency department if you have any of the following symptoms: -Fever of 102F or greater -Persistent vomiting -Slurred speech -Lethargy -Chest pain -Shortness of breath -Worsening pain Problem Qualifiers
[2017-01-01] MEDS ORDERED: METOCLOPRAMIDE HCL INJ 5 MG/ML 2 ML VIAL IV STA (23:01)
[2017-01-01] MEDS ORDERED: SODIUM CHLORIDE 0.9% 1000ML 1,000 ML IV ONE (23:15)
[2017-01-01 23:20] LABS: CALCIUM 9.8 mg/dl (8.5-10.1); CREATININE 0.74 mg/dl (0.60-1.20); POTASSIUM 3.9 mmol/L (3.5-5.1)
[2017-01-01 23:23] LABS: ALB/GLOB RATIO 0.9 (0.9-2)
[2017-01-01] MEDS ORDERED: LISINOPRIL 5 MG TAB PO ONE (23:45)
[2017-01-01] MEDS ORDERED: HYDROmorphone INJ 1 MG/ML SYR IV ONE (23:45)
[2017-01-02] MEDS ORDERED: ONDANSETRON HOME PACK 4MG OD TAB PO ONE (00:15)
[2017-01-02] MEDS ORDERED: AMOXICILLIN/CLAVULANATE TAB 875 MG TAB PO ONE (00:15)
[2017-01-02] MEDS ORDERED: ONDA4TAB10 SL (00:20)
[2017-01-02] MEDS ORDERED: AMOX875T PO (00:20)
[2017-01-02 00:39] VITALS: BP 142/83; PULSE 84; O2SAT 97
--- NOTE | 2017-01-02 06:37 | DIAGNOSTIC IMAGING REPORT ---
CT HEAD WITHOUT CONTRAST (CT) CLINICAL HISTORY: headache NAUSEA, VOMITING. COMPARISON STUDY: No previous studies for comparison. TECHNIQUE: Axial CT of the brain is performed from the vertex to the skull base. IV contrast was not administered for this examination. A dose lowering technique was utilized adhering to the principles of ALARA. CT DOSE: 537.48 mGy.cm FINDINGS: No intra or extra-axial mass lesions are visualized. There is no CT evidence of acute cortical infarction. There is no evidence of midline shift. There is no acute hemorrhage. No calvarial fractures are visualized. There are patchy white matter hypodensities likely on a small vessel basis. There is mild mucosal thickening within the sphenoid ethmoid and maxillary and frontal sinuses. There is also partial opacification of the mastoids. There are nasal bone deformities, likely old. IMPRESSION: 1. Mild mucosal disease in the paranasal sinuses 2. Otherwise no acute intracranial findings. Electronically signed by: Irwin Brown M.D. 01/02/2017 6:35 AM Dictated Date/Time: 01/02/2017 6:34 AM
== END 2017-01-02 00:49 | disposition home or self-care (01) ==
LOC: EDBD 22:15 → C.EDB 22:16
DX: J32.9 Chronic sinusitis, unspecified (principal); R51 Headache; J45.909 Unspecified asthma, uncomplicated; I10 Essential (primary) hypertension; Z83.3 Family history of diabetes mellitus; Z82.49 Family history of ischemic heart disease and other diseases of the circulatory system; Z82.0 Family history of epilepsy and other diseases of the nervous system

== ENCOUNTER 2017-01-26 15:36 | Emergency (ER) | payer OTHER ==
[~2017-01-26] VITALS: Ht 154.9 cm; Wt 117.0 kg
[~2017-01-26 15:36] MED LIST changes: -ERGO500037 PO; +MELO15TA4 PO; +ONDA4TAB10 SL; -PRED20TA PO; +SERT50TA PO; +URC10 PO
[2017-01-26 15:41] VITALS: TEMP 37; Ht 154.9 cm; Wt 117.0 kg
[2017-01-26] MEDS ORDERED: ONDANSETRON INJ 2 MG/ML 2 ML VIAL IV STA ×2 (15:53→19:12)
[2017-01-26] MEDS ORDERED: KETOROLAC TROMETHAMINE 30 MG/ML VIAL IV STA (15:53)
[2017-01-26] MEDS ORDERED: FENTANYL CITRATE INJ 50 MCG/1 ML 2 ML VIAL IV STA (15:53)
[2017-01-26] MEDS ORDERED: SODIUM CHLORIDE 0.9% 1000ML 1,000 ML IV STA ×2 (15:53→19:12)
[2017-01-26] MEDS ORDERED: TRAM-10 PO (15:58)
[2017-01-26] MEDS ORDERED: ACET-1256 PO (15:58)
[2017-01-26] MEDS ORDERED: OPTIRAY 320 IV PRN (16:00)
--- NOTE | 2017-01-26 16:39 | EMERGENCY ROOM VISIT NOTE ---
History Report prepared by Obinna: Kelvin Ramírez Under the Supervision of: Dr. Zachary Burns M.D. First contact with patient: 15:39 Chief Complaint: KIDNEY STONE Stated Complaint: R SIDE BACK & AB PAIN History of Present Illness The patient is a 51 year old female who presents to the Emergency Room with complaints of persistent right flank pain beginning a few weeks ago. Her pain radiates into her abdomen. She also complains of urinary symptoms and nausea. The patient's urinary symptoms include decreased urinary output. She has a history of kidney stones and states that her current symptoms feel identical with her previous kidney stones. She denies any fevers, chills, or vomiting. The patient notes that she has a previous history of CVA, but no history of SC. She rates her current pain as a 9.5/10 in severity. 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 Source of History: patient Onset: A few weeks ago Position: other (right flank) Symptom Intensity: 9.5/10 Timing: other (persistent) Associated Symptoms: + nausea, + urinary symptoms (decreased output), No fevers, No chills, No vomiting Review of Systems See HPI for pertinent positives and negatives. A total of ten systems were reviewed and were otherwise negative. Past Medical & Surgical Medical Problems: (1) Asthma (2) HTN (hypertension) (3) Kidney stone Family History Cancer Diabetes mellitus FHx: gallbladder disease Hypertension Kidney disease Seizures Social History Smoking Status: Never Smoker Alcohol Use: none Marital Status: Housing Status: lives with significant other Occupation Status: unemployed Current/Historical Medications Scheduled Cefpodoxime Proxetil (Cefpodoxime Proxetil), 1 TAB PO BID Cyanocobalamin (Vitamin B-12), 100 MCG PO QAM Lisinopril (Zestril), 10 MG PO QAM Meloxicam (Mobic), 7.5 MG PO BID Ondasetron Odt (Zofran Odt), 4 MG SL Q6H Ondasetron Odt (Zofran Odt), 4 MG SL Q6H Potassium Citrate (Potassium Citrate), 10 MEQ PO DAILY Sucralfate (Carafate), 1 TAB PO ACHS Tamsulosin Hcl (Flomax), 0.4 MG PO DAILY Scheduled PRN Acetaminophen (Tylenol), 500 MG PO Q6H PRN for Pain Albuterol Hfa (Ventolin Hfa), 2-4 PUFFS INH Q6H PRN for SOB/Wheezing Oxycodone Hcl (Oxycodone Hcl), 1 CAP PO TID PRN for Pain Ranitidine (Zantac), 150 MG PO BID PRN for Indigestion Tramadol (Ultram), 50 MG PO Q8H PRN for Pain Allergies Coded Allergies: Morphine (Verified Allergy, Intermediate, HIVES, 01/26/17) Meperidine (Verified Adverse Reaction, Intermediate, NAUSEA, 01/26/17) Physical Exam Vital Signs Date Time Temp Pulse Resp B/P (MAP) Pulse Ox O2 Delivery O2 Flow Rate FiO2 01/26/17 21:02 71 16 133/71 98 01/26/17 19:30 68 18 01/26/17 19:27 179/93 01/26/17 17:36 69 21 01/26/17 17:06 69 18 01/26/17 16:44 159/93 01/26/17 16:36 71 19 01/26/17 16:30 75 01/26/17 15:41 37.0 75 20 175/114 97 Room Air 01/26/17 15:39 175/114 Physical Exam GENERAL: Awake, alert, uncomfortable-appearing, in no distress HENT: Normocephalic, atraumatic. Oropharynx unremarkable. Dry mucous membranes. EYES: Normal conjunctiva. Sclera non-icteric. NECK: Supple. No nuchal rigidity. FROM. No JVD. RESPIRATORY: Clear to auscultation. CARDIAC: Regular rate, normal rhythm. Extremities warm and well perfused. Pulses equal. ABDOMEN: Soft, non-distended. No rebound or guarding. No masses. Mild right flank tenderness and CVA tenderness to palpation. No peritoneal signs. RECTAL: Deferred. MUSCULOSKELETAL: Chest examination reveals no tenderness. The back is symmetrical on inspection without obvious abnormality. There is no CVA tenderness to palpation. No joint edema. LOWER EXTREMITIES: Calves are equal size bilaterally and non-tender. No edema. No discoloration. NEURO: Normal sensorium. No sensory or motor deficits noted. SKIN: No rash or jaundice noted. Medical Decision & Procedures ER Provider Diagnostic Interpretation: CT: Radiology results as stated below per my review and radiologist interpretation CT ABD/PELVIS IV CONTRAST ONLY FINDINGS: Lower chest: The heart is normal in size and configuration, without pericardial effusion. The lung bases and pleural spaces are clear. Liver: There is hepatic steatosis. No focal masses are visualized. Gallbladder: Not visualized and presumed surgically absent Spleen: Normal in size and attenuation. Pancreas: Unremarkable. Adrenal glands: Unremarkable. Kidneys: There are punctate nonobstructing lower pole left renal calculi. There is a 4 mm calculus within the right renal pelvis. There is no hydronephrosis. No ureteral or bladder calculi are visualized. There is persistent thickening of the right renal pelvis with mild proximal right periureteral stranding. While likely on an inflammatory basis or secondary to intermittent obstruction, a neoplastic process cannot be excluded with certainty. Bowel: There are no transition zones indicate bowel obstruction. There is no acute diverticulitis. There is no evidence of acute appendicitis. Peritoneum: There is no intraperitoneal free air or abdominal ascites. Vasculature: The abdominal aorta is normal in course and caliber. Adenopathy: None. Pelvic viscera: The endometrial stripe remains mildly thickened measuring 19 mm. Skeletal structures: No destructive osseous lesions are seen. IMPRESSION: 1. No evidence of bowel obstruction. No evidence of free air 2. Hepatic steatosis 3. Bilateral nephrolithiasis including a 4 mm calculus within the right renal pelvis 4. Mild stranding surrounding the right renal pelvis and proximal right ureter with borderline uroepithelial thickening. On a statistical basis, the findings are inflammatory or secondary to intermittent obstruction. Clinical correlation in this regard is advocated 5. No current evidence of hydronephrosis. 6. Persistent mild thickening of the endometrial stripe which measures 19 mm Electronically signed by: Irwin Brown M.D. 01/26/2017 6:56 PM Laboratory Results 01/26/17 16:30 Red Blood Count 4.88, Mean Corpuscular Volume 78.9, Mean Corpuscular Hemoglobin 25.0, Mean Corpuscular Hemoglobin Concent 31.7, Mean Platelet Volume 9.0, Neutrophils (%) (Auto) 51.6, Lymphocytes (%) (Auto) 35.3, Monocytes (%) (Auto) 10.1, Eosinophils (%) (Auto) 2.2, Basophils (%) (Auto) 0.6, Neutrophils # (Auto ) 2.56, Lymphocytes # (Auto) 1.75, Monocytes # (Auto) 0.50, Eosinophils # (Auto ) 0.11, Basophils # (Auto) 0.03 01/26/17 16:30 Test 01/26/17 16:15 01/26/17 16:30 Urine Color DK YELLOW Urine Appearance CLEAR (CLEAR) Urine pH 5.5 (4.5-7.5) Urine Specific [place] 1.024 (1.000-1.030) Urine Protein 1+ (NEG) Urine Glucose (UA) NEG (NEG) Urine Ketones TRACE (NEG) Urine Occult Blood 2+ (NEG) Urine Nitrite NEG (NEG) Urine Bilirubin NEG (NEG) Urine Urobilinogen NEG (NEG) Urine Leukocyte Esterase TRACE (NEG) Urine WBC (Auto) 10-30 /hpf (0-5) Urine RBC (Auto) >30 /hpf (0-4) Urine Hyaline Casts (Auto) 1-5 /lpf (0-5) Urine Epithelial Cells (Auto) >30 /lpf (0-5) Urine Bacteria (Auto) NEG (NEG) White Blood Count 4.96 K/uL (4.8-10.8) Red Blood Count 4.88 M/uL (4.2-5.4) Hemoglobin 12.2 g/dL (12.0-16.0) Hematocrit 38.5 % (37-47) Mean Corpuscular Volume 78.9 fL (80-100) Mean Corpuscular Hemoglobin 25.0 pg (25-34) Mean Corpuscular Hemoglobin Concent 31.7 g/dl (32-36) Platelet Count 185 K/uL (130-400) Mean Platelet Volume 9.0 fL (7.4-10.4) Neutrophils (%) (Auto) 51.6 % Lymphocytes (%) (Auto) 35.3 % Monocytes (%) (Auto) 10.1 % Eosinophils (%) (Auto) 2.2 % Basophils (%) (Auto) 0.6 % Neutrophils # (Auto) 2.56 K/uL (1.4-6.5) Lymphocytes # (Auto) 1.75 K/uL (1.2-3.4) Monocytes # (Auto) 0.50 K/uL (0.11-0.59) Eosinophils # (Auto) 0.11 K/uL (0-0.5) Basophils # (Auto) 0.03 K/uL (0-0.2) RDW Standard Deviation 48.0 fL (36.4-46.3) RDW Coefficient of Variation 16.7 % (11.5-14.5) Immature Granulocyte % (Auto) 0.2 % Immature Granulocyte # (Auto) 0.01 K/uL (0.00-0.02) Anion Gap 6.0 mmol/L (3-11) Est Creatinine Clear Calc Drug Dose 101.8 ml/min Estimated GFR () 102.9 Estimated GFR (Non- 88.8 BUN/Creatinine Ratio 17.7 (10-20) Calcium Level 9.3 mg/dl (8.5-10.1) Total Bilirubin 0.6 mg/dl (0.2-1) Direct Bilirubin 0.1 mg/dl (0-0.2) Aspartate Amino Transf (AST/SGOT) 45 U/L (15-37) Alanine Aminotransferase (ALT/SGPT) 54 U/L (12-78) Alkaline Phosphatase 76 U/L (45-117) Total Protein 7.8 gm/dl (6.4-8.2) Albumin 3.6 gm/dl (3.4-5.0) Lipase 125 U/L (73-393) Laboratory results reviewed by me Medications Administered Medications (Trade) Dose Ordered Sig/Yazmin Route Start Time Stop Time Status Last Admin Dose Admin Sodium Chloride 1,000 ml @ 999 mls/hr Q1H1M STAT IV 01/26/17 15:53 01/26/17 16:53 DC 01/26/17 16:40 999 MLS/HR Ondansetron HCl (Zofran Inj) 4 mg NOW STAT IV 01/26/17 15:53 01/26/17 15:59 DC 01/26/17 16:40 4 MG Fentanyl Citrate (Fentanyl Inj) 100 mcg NOW STAT IV 01/26/17 15:53 01/26/17 15:59 DC 01/26/17 16:41 100 MCG Ketorolac Tromethamine (Toradol Inj) 30 mg NOW STAT IV 01/26/17 15:53 01/26/17 15:59 DC 01/26/17 16:41 30 MG Ceftriaxone Sodium 2000 mg/ Dextrose 70 ml @ 100 mls/hr ONE STAT IV 01/26/17 19:09 01/26/17 19:50 DC 01/26/17 19:31 100 MLS/HR Sodium Chloride 1,000 ml @ 999 mls/hr Q1H1M STAT IV 01/26/17 19:12 01/26/17 20:12 DC 01/26/17 19:12 999 MLS/HR Tamsulosin HCl (Flomax Cap) 0.4 mg NOW ONCE PO 01/26/17 19:15 01/26/17 19:16 DC 01/26/17 19:32 0.4 MG Ondansetron HCl (Zofran Inj) 4 mg NOW STAT IV 01/26/17 19:12 01/26/17 19:15 DC 01/26/17 19:12 4 MG Oxycodone HCl (Roxicodone Immediate Rel Tab) 10 mg NOW STAT PO 01/26/17 19:12 01/26/17 19:15 DC 01/26/17 19:33 10 MG Acetaminophen (Tylenol Tab) 1,000 mg NOW STAT PO 01/26/17 19:12 01/26/17 19:15 DC 01/26/17 19:32 1,000 MG ECG Indication: abdominal pain Rate (beats per minute): 72 Rhythm: normal sinus Findings: no acute ischemic change, other (Normal axis.) ED Course 1552: The patient was evaluated in room C8. A complete history and physical exam was performed. 1553: Ordered Toradol Inj 30 mg IV, Fentanyl Inj 100 mcg IV, Zofran Inj 4 mg IV , Sodium Chloride 1000 ml @ 999 mls/hr IV. 1909: Ordered Ceftriaxone Sodium 2000 mg/Dextrose 70 mL @ 100 mL/hr IV. 1912: Ordered Tylenol Tab 1000 mg PO, Roxicodone Immediate Rel Tab 10 mg PO, Zofran Inj 4 mg IV, Sodium Chloride 1000 ml @ 999 mls/hr IV. 1915: Ordered Flomax Cap 0.4 mg PO. 1918: Ordered Rocephin Inj 2 gm IV. 2030: I reevaluated the patient. Discussed results and discharge instructions: she verbalized understanding and agreement. The patient is ready for discharge. Medical Decision I reviewed the patient's past medical history, medications, and the nursing notes as described above. The patient's presentation and history were concerning for kidney stones, UTI, pyelonephritis, biliary etiology, appendicitis, gastroenteritis, and gastritis. The patient is a 51-year-old woman with a past medical history of renal stones presents emergency Department with worsening right flank pain per history of present illness. Arrival the patient appears uncomfortable but in no acute distress, afebrile with stable vital signs. And she has right CVA tenderness and moderate right flank tenderness. WBC and Cr wnl. CT abd/pel showing 4mm non obstructing stone. UA with trace LE and 1--30 WBCs thus given IV CTX. Patient improved after additional IVF/meds. Given size of stone and no evidence of obstruction, and clinically non-toxic, outpatient management is appropriate. d/c with cefpodoxime. Findings and plan for follow-up reviewed with patient. Patient agreeable and d/c'd per discharge instructions. [place] Drug [place] Search Results: no issues identified Medication Reconcilliation Current Medication List: was personally reviewed by me Blood Pressure Screening Patient's blood pressure: Elevated blood pressure Blood pressure disposition: Referred to PCP Impression Primary Impression: Ureterolithiasis Additional Impression: UTI (urinary tract infection) Scribe Attestation The scribe's documentation has been prepared under my direction and personally reviewed by me in its entirety. I confirm that the note above accurately reflects all work, treatment, procedures, and medical decision making performed by me. Departure Information Dispostion Home / Self-Care Prescriptions Cefpodoxime Proxetil (CEFPODOXIME PROXETIL) 100 Mg Tab 1 TAB PO BID for 7 Days, #14 TABS Prov: Zachary Burns M.D. 01/26/17 Oxycodone Hcl (OXYCODONE HCL) 5 Mg Cap 1 CAP PO TID Y for Pain, #6 CAP Prov: Zachary Burns M.D. 01/26/17 Tamsulosin Hcl (FLOMAX) 0.4 Mg Cap 0.4 MG PO DAILY for 10 Days, #10 CAP Prov: Zachary Burns M.D. 01/26/17 Ondasetron Odt (ZOFRAN ODT) 4 Mg Tab 4 MG SL Q6H for Nausea, #6 TAB Prov: Zachary Burns M.D. 01/26/17 Referrals Mike Jensen M.D. (PCP) Suhas Ealry MD, Urology Patient Instructions ED UTI Cystitis Female, Kidney Stones, My [facility] Additional Instructions Please follow up with urology as well as with your primary care physician in the next week for reevaluation. You have a 4 mm kidney stone as well as a urinary tract infection. Otherwise, your exam, lab results, and CT scan did not show signs of an emergent condition at this time. Continue your current medications for pain as prescribed. Oxycodone for breakthrough pain as needed. Zofran as needed for nausea. Flomax to help with stone passage. Cefpodoxime antibiotic for infection as prescribed. Return to the emergency department for worsening symptoms as described in the accompanying instructions. Problem Qualifiers
[2017-01-26 16:42] LABS: BASO % 0.6 %; BASO ABS # 0.03 K/uL (0-0.2); COMPLETE YES; EOS % 2.2 %; HEMATOCRIT 38.5 % (37-47); IG% 0.2 %; LYMPH % 35.3 %; LYMPH ABS # 1.75 K/uL (1.2-3.4); MEAN CELL VOLUME 78.9 fL (80-100); MEAN CORPUSCULAR HGB CONC 31.7 g/dl (32-36); MONO % 10.1 %; NEUT % 51.6 %; PLATELET COUNT 185 K/uL (130-400); RED BLOOD COUNT 4.88 M/uL (4.2-5.4); WHITE BLOOD COUNT 4.96 K/uL (4.8-10.8)
[2017-01-26 16:53] LABS: URINE APPEARANCE CLEAR (CLEAR); URINE BILIRUBIN NEG (NEG); URINE COLOR DK YELLOW; URINE EPITHELIAL CELL AUTO >30 /lpf (0-5); URINE NITRITE NEG (NEG); URINE PH 5.5 (4.5-7.5); URINE SPECIFIC GRAVITY 1.024 (1.000-1.030); UROBILINOGEN NEG (NEG); ZZUR CULT IF INDIC CLEAN CATCH YES
[2017-01-26 16:55] LABS: MANUAL MICROSCOPIC REQUIRED? NO; REVIEW REQ? NO
[2017-01-26 17:21] LABS: BUN/CREATININE RATIO 17.7 (10-20); CALCIUM 9.3 mg/dl (8.5-10.1); CREATININE 0.77 mg/dl (0.60-1.20); POTASSIUM 3.7 mmol/L (3.5-5.1)
--- NOTE | 2017-01-26 18:57 | DIAGNOSTIC IMAGING REPORT ---
CT ABD/PELVIS IV CONTRAST ONLY CLINICAL HISTORY: right flank pain h/o kidney stones COMPARISON STUDY: 10/18/2016 TECHNIQUE: Following the IV administration of 93 mL of Optiray-320, CT scan of the abdomen and pelvis was performed from the lung bases to the proximal femurs. Images are reviewed in the axial, sagittal, and coronal planes. IV contrast was administered without complication. A dose lowering technique was utilized adhering to the principles of ALARA. CT DOSE: 1638.34 mGy.cm FINDINGS: Lower chest: The heart is normal in size and configuration, without pericardial effusion. The lung bases and pleural spaces are clear. Liver: There is hepatic steatosis. No focal masses are visualized. Gallbladder: Not visualized and presumed surgically absent Spleen: Normal in size and attenuation. Pancreas: Unremarkable. Adrenal glands: Unremarkable. Kidneys: There are punctate nonobstructing lower pole left renal calculi. There is a 4 mm calculus within the right renal pelvis. There is no hydronephrosis. No ureteral or bladder calculi are visualized. There is persistent thickening of the right renal pelvis with mild proximal right periureteral stranding. While likely on an inflammatory basis or secondary to intermittent obstruction, a neoplastic process cannot be excluded with certainty. Bowel: There are no transition zones indicate bowel obstruction. There is no acute diverticulitis. There is no evidence of acute appendicitis. Peritoneum: There is no intraperitoneal free air or abdominal ascites. Vasculature: The abdominal aorta is normal in course and caliber. Adenopathy: None. Pelvic viscera: The endometrial stripe remains mildly thickened measuring 19 mm. Skeletal structures: No destructive osseous lesions are seen. IMPRESSION: 1. No evidence of bowel obstruction. No evidence of free air 2. Hepatic steatosis 3. Bilateral nephrolithiasis including a 4 mm calculus within the right renal pelvis 4. Mild stranding surrounding the right renal pelvis and proximal right ureter with borderline uroepithelial thickening. On a statistical basis, the findings are inflammatory or secondary to intermittent obstruction. Clinical correlation in this regard is advocated 5. No current evidence of hydronephrosis. 6. Persistent mild thickening of the endometrial stripe which measures 19 mm Electronically signed by: Irwin Brown M.D. 01/26/2017 6:56 PM Dictated Date/Time: 01/26/2017 6:49 PM
[2017-01-26] MEDS ORDERED: CEFTRIAXONE SOD INJ 2,000 MG in DEXTROSE 5% 50ML 50 ML IV STA (19:09)
[2017-01-26] MEDS ORDERED: OXYCODONE HCL IR 5 MG TAB (IMMEDIATE RELEASE) PO STA (19:12)
[2017-01-26] MEDS ORDERED: ACETAMINOPHEN 500 MG TAB PO STA (19:12)
[2017-01-26] MEDS ORDERED: TAMSULOSIN HCL 0.4 MG CAP PO ONE (19:15)
[2017-01-26] MEDS ORDERED: CEFTRIAXONE SOD INJ 1 GM ADDVIAL ONE (19:18)
[2017-01-26] MEDS ORDERED: OXYC1CAP5 PO (20:27)
[2017-01-26] MEDS ORDERED: TAMS0.4C38 PO (20:27)
[2017-01-26] MEDS ORDERED: ONDA4TAB10 SL (20:27)
[2017-01-26] MEDS ORDERED: OXYCODONE IR HOME PACK PO ONE (20:30)
[2017-01-26] MEDS ORDERED: CEFP100T7 PO (20:30)
[2017-01-26] MEDS ORDERED: ONDANSETRON HOME PACK 4MG OD TAB PO ONE (20:30)
[2017-01-26 21:02] VITALS: BP 133/71; PULSE 71; O2SAT 98
--- NOTE | 2017-01-27 11:18 | Pharmacy Progress Note ---
ED Pharmacist Culture FollowUp Date of Service: Jan 27, 2017. Received call from [facility] stating patient's insurance [employer], would not cover the cefpodoxime [address] course [address] Burns and the patient did not want to pay that amount. Discussed with Dr. Byrnes. We first tried to switch to cefdinir 7 day course as the most similar agent but this was also not covered by insurance. Therefore we switched to levaquin 500mg QD X 7 days as this was covered by insurance and should be suitable for UTI coverage. It is noted that urine culture results are still pending.
== END 2017-01-26 21:02 | disposition home or self-care (01) ==
LOC: EDBD 15:36 → C.EDC 15:37
DX: N20.1 Calculus of ureter (principal); N39.0 Urinary tract infection, site not specified; J45.909 Unspecified asthma, uncomplicated; I10 Essential (primary) hypertension; Z83.3 Family history of diabetes mellitus; Z82.49 Family history of ischemic heart disease and other diseases of the circulatory system; Z82.0 Family history of epilepsy and other diseases of the nervous system

== ENCOUNTER → 2017-03-05 | Day surgery (SDC) | payer OTHER ==
[2017-02-24 15:17] VITALS: Ht 162.6 cm; Wt 106.4 kg
[~2017-03-05] VITALS: Ht 162.6 cm; Wt 106.4 kg
[~2017-03-05] MED LIST changes: +ACET-1256 PO; +ALBINS/ INH; +ATROPINE SULFATE 0.1 MG/ML 5ML SYR IV PRN; +CIPROFLOXACIN 400MG / D5W IV SCH; -CLR10 PO; -CYCL10TA6 PO; +DEXAMETHASONE SOD INJ 4 MG/ML VIAL ONE; +DTRSR5 PO; +EpHEDrine SULFATE INJ 50 MG/ML AMP IV PRN; +FENTANYL CITRATE INJ 50 MCG/1 ML 2 ML VIAL IV PRN; +FENTANYL CITRATE INJ 50 MCG/1 ML 2 ML VIAL ONE; +HYDR-5688 PO; +LACTATED RINGER'S 1000ML 1,000 ML IV SCH; +LIDOCAINE HCL 2% 2 ML VIAL (20MG/ML) ONE; +MIDAZOLAM HCL 1 MG/ML 2ML VIAL ONE; -ONDA4TAB10 SL; +ONDA4TAB46 SL; +ONDANSETRON INJ 2 MG/ML 2 ML VIAL IV PRN; +ONDANSETRON INJ 2 MG/ML 2 ML VIAL ONE; +OXYCODONE/ACETAMINOPHEN 5-325 TAB PO PRN; -PRLSR20 PO; +PROPOFOL IV EMULSION 10 MG/ML 20 ML VIAL IV ONE; -SERT50TA PO; +SODIUM CHLORIDE 0.9% 1000ML 1,000 ML IV SCH; +TAMS0.4C38 PO
--- NOTE | 2017-03-05 09:06 | DIAGNOSTIC IMAGING REPORT ---
KUB HISTORY: Right renal pelvis calculus seen on comparison study N20.0 Calculus of kidney COMPARISON: CT abdomen and pelvis 01/26/2017 FINDINGS: The bowel gas pattern is non-obstructive. There is no organomegaly. Renal shadows are suboptimally evaluated secondary to obscuring bowel gas. There are 2 round hyperdensities projecting over the right upper abdomen, suspicious for nephrolithiasis measuring up to 4 mm. Note that only one renal calculus however was seen on comparison CT. No calculi seen along the course of either ureter. There are probable phleboliths of the pelvis. Left nephrolithiasis redemonstrated. No pneumoperitoneum or pneumatosis. No fracture. IMPRESSION: 1. Renal shadows are obscured by bowel gas. Left nephrolithiasis redemonstrated with round hyperdensities projecting over the right renal shadow suspicious for possible nephrolithiasis. No ureteral calculi identified. 2. Nonobstructive bowel gas pattern. Electronically signed by: Clarke Joe M.D. 03/05/2017 9:05 AM Dictated Date/Time: 03/05/2017 9:00 AM
--- NOTE | 2017-03-05 12:15 | Discharge Instructions-SurgCtr ---
Discharge Instructions Date of Service Mar 05, 2017. Visit Reason for Visit: STONE Discharge Discharge Diagnosis / Problem: stone Discharge Goals Goal(s): Decrease discomfort, Improve function, Increase independence, Improve disease control Activity Recommendations Activity Limitations: resume your previous activity Lifting Limitations: none Exercise/Sports Limitations: none May Resume Sexual Activity: when tolerated Shower/Bathe: no limitations Driving or Machine Use: no limitations Anesthesia . Post Anesthesia Instructions: If you have had General Anesthesia or IV Sedation: * Do not drive today. * Resume driving when surgeon permits. * Do not make important decisions or sign legal documents today. * Call surgeon for: 1. Temperature elevations greater than 101 degrees F. 2. Uncontrollable pain. 3. Excessive bleeding. 4. Persistent nausea and vomiting. 5. Medication intolerance (nausea, vomiting or rash). * For nausea and vomiting use only clear liquids such as: tea, soda, bouillon until nausea subsides, then gradually increase diet as tolerated. * If you have any concerns or questions, call your surgeon's office. If physician is unavailable and it is an emergency, call 911 or go to the nearest emergency room. . Instructions / Follow-Up Instructions / Follow-Up Please keep your previously scheduled follow up appointment. Diet Recommendations Home Diet: no limitations, resume previous diet Procedures Procedures Performed: Right Extracorporeal Shock Wave Lithotripsy Pending Studies Studies pending at discharge: no Medical Emergencies . Who to Call and When: Medical Emergencies: If at any time you feel your situation is an emergency, please call 911 immediately. . Non-Emergent Contact Non-Emergency issues call your: Urologist Call Non-Emergent contact if: you have a fever, temperature is above 101.5, your pain is not controlled, your pain is worsening . . "Provider Documentation" section prepared by Jordan Hernandez. . [place] Drug [place] Search Results: patient reviewed within database, no issues identified ( numerous prescriptions in the past year - still appropriate for meds after today 's procedure)
--- NOTE | 2017-03-05 12:18 | [facility] Operative Report ---
Operative Report Operative Date Mar 05, 2017. Pre-Operative Diagnosis Right Renal Stone Post-Operative Diagnosis Same Procedure(s) Performed Right Extracorporeal Shock Wave Lithotripsy Surgeon Dr. Jovanny Granados Service Now Developer Surgeon(s) None Estimated Blood Loss 0 mL Findings Right renal calculus Specimens None Drains none Anesthesia Gen. Complication(s) None Disposition Recovery Room / PACU (stable) Indications Symptomatic renal stone Description of Procedure Of note, on preoperative imaging there is some suggestion of 2 renal stones. Reviewing her CT scan from mid-January, and appears that she had only one stone at that time. On fluoroscopic evaluation today, it appears that there is only a solitary stone in the midpole of the kidney - the stone was subsequently the stone that was targeted. The patient was identified in the preoperative holding area, appropriate informed consent was reviewed and completed and the patient was transported to the operating suite. Upon arrival appropriate preoperative antibiotics were administered and general anesthesia induced. The patient was placed in supine position and the stone was localized under fluoroscopy. A total of 2500 shocks were delivered to the stone. There appeared to be good fragmentation of the stone. Details of this procedure can be found on the [facility] information sheet. At the conclusion of the case the patient was extubated and taken to the PACU in stable condition. There were no complications. I attest to the content of the Intraoperative Record and any orders documented therein. Any exceptions are noted below.
--- NOTE | 2017-03-05 13:06 | Anesthesia Progress Nt - [facility] ---
Anesthesia Post Op Note Date & Time Mar 05, 2017 at 13:06 Vital Signs Pain Intensity: 0 Vital Signs Past 12 Hours Date Time Temp Pulse Resp B/P (MAP) Pulse Ox O2 Delivery O2 Flow Rate FiO2 03/05/17 12:56 116/73 03/05/17 12:55 36.9 71 20 116/73 98 Room Air 03/05/17 12:55 69 23 03/05/17 12:55 68 23 133/110 97 03/05/17 12:51 145/82 03/05/17 12:50 78 18 97 03/05/17 12:50 77 18 03/05/17 12:46 127/76 03/05/17 12:45 72 17 100 03/05/17 12:45 72 17 03/05/17 12:41 120/87 03/05/17 12:40 69 19 100 03/05/17 12:40 70 19 03/05/17 12:39 72 23 100 03/05/17 12:39 74 23 03/05/17 12:38 71 15 03/05/17 12:38 72 15 100 03/05/17 12:37 78 24 03/05/17 12:37 75 24 100 03/05/17 12:35 145/112 03/05/17 12:32 73 18 03/05/17 12:32 72 18 100 03/05/17 12:31 73 15 124/94 100 03/05/17 12:31 74 15 03/05/17 12:26 81 18 03/05/17 12:26 82 18 132/75 99 03/05/17 12:21 83 15 03/05/17 12:21 82 15 146/91 98 03/05/17 12:16 87 16 03/05/17 12:16 84 16 95 03/05/17 12:15 136/104 03/05/17 12:12 161/111 03/05/17 12:11 36.6 91 16 161/111 94 Mask 8 03/05/17 12:11 98 12 03/05/17 12:11 95 12 92 03/05/17 09:20 36.6 93 18 153/93 (113) 97 Room Air Notes Mental Status: alert / awake / arousable, participated in evaluation Pt Amnestic to Procedure: Yes Nausea / Vomiting: adequately controlled Pain: adequately controlled Airway Patency, RR, SpO2: stable & adequate BP & HR: stable & adequate Hydration State: stable & adequate Anesthetic Complications: no major complications apparent
[2017-03-05 13:13] VITALS: TEMP 36.3
[2017-03-05 14:00] VITALS: BP 125/86; PULSE 74; O2SAT 99
== END | disposition home or self-care (01) ==
LOC: C.RAD1850 08:32 → X.SURG 09:00
PROVIDERS: ATTEND Urology
DX: N20.0 Calculus of kidney (principal); K21.9 Gastro-esophageal reflux disease without esophagitis; J45.909 Unspecified asthma, uncomplicated; E13.10 Other specified diabetes mellitus with ketoacidosis without coma; I10 Essential (primary) hypertension; M54.16 Radiculopathy, lumbar region; G89.29 Other chronic pain; E66.01 Morbid (severe) obesity due to excess calories; M99.05 Segmental and somatic dysfunction of pelvic region; G57.02 Lesion of sciatic nerve, left lower limb; R29.3 Abnormal posture; G25.81 Restless legs syndrome; M99.04 Segmental and somatic dysfunction of sacral region; M99.06 Segmental and somatic dysfunction of lower extremity; M99.09 Segmental and somatic dysfunction of abdomen and other regions; M99.03 Segmental and somatic dysfunction of lumbar region; M99.02 Segmental and somatic dysfunction of thoracic region; M99.08 Segmental and somatic dysfunction of rib cage; F41.8 Other specified anxiety disorders; Z79.899 Other long term (current) drug therapy

== ENCOUNTER → 2017-03-31 | Outpatient (CLI) | payer OTHER ==
[~2017-03-31] MED LIST changes: -ATROPINE SULFATE 0.1 MG/ML 5ML SYR IV PRN; -CIPROFLOXACIN 400MG / D5W IV SCH; -DEXAMETHASONE SOD INJ 4 MG/ML VIAL ONE; -DTRSR5 PO; -EpHEDrine SULFATE INJ 50 MG/ML AMP IV PRN; -FENTANYL CITRATE INJ 50 MCG/1 ML 2 ML VIAL IV PRN; -FENTANYL CITRATE INJ 50 MCG/1 ML 2 ML VIAL ONE; -HYDR-5688 PO; -LACTATED RINGER'S 1000ML 1,000 ML IV SCH; -LIDOCAINE HCL 2% 2 ML VIAL (20MG/ML) ONE; -MIDAZOLAM HCL 1 MG/ML 2ML VIAL ONE; -ONDANSETRON INJ 2 MG/ML 2 ML VIAL IV PRN; -ONDANSETRON INJ 2 MG/ML 2 ML VIAL ONE; -OXYCODONE/ACETAMINOPHEN 5-325 TAB PO PRN; -PROPOFOL IV EMULSION 10 MG/ML 20 ML VIAL IV ONE; -SODIUM CHLORIDE 0.9% 1000ML 1,000 ML IV SCH
[2017-03-31 12:49] LABS: BLOOD UREA NITROGEN 14 mg/dl (7-18); BUN/CREATININE RATIO 18.4 (10-20); CALCIUM 9.4 mg/dl (8.5-10.1); CARBON DIOXIDE 27 mmol/L (21-32); CHLORIDE 104 mmol/L (98-107); CREATININE 0.78 mg/dl (0.60-1.20); GLUCOSE 95 mg/dl (70-99); SODIUM 138 mmol/L (136-145)
== END | disposition home or self-care (01) ==
LOC: C.LABBFT 09:23
PROVIDERS: ATTEND Physician Assistant Medical
DX: I10 Essential (primary) hypertension (principal)

== ENCOUNTER → 2017-04-02 | Outpatient (CLI) | payer OTHER ==
--- NOTE | 2017-04-02 11:33 | DIAGNOSTIC IMAGING REPORT ---
R EXTREMITY NONVASCULAR LIMITED HISTORY: 51 years-old Female R22.9 Subcutaneous nodules subcutaneous lumps along right abdomen COMPARISON: CT abdomen and pelvis 03/18/2017 TECHNIQUE: Multiple real-time sonographic images of the right abdominal wall were obtained assessing grayscale appearance and color flow FINDINGS: Within the area of concern there is an ovoid structure which is isoechoic to adjacent subcutaneous fat measuring 4.3 x 2.2 x 1.5 cm with ill-defined margins oriented parallel to the skin surface with adjacent similar-appearing lesion measuring 2.3 x 3.3 x 1.2 cm. No posterior acoustic shadowing identified. Minimal internal vascularity is present. Right kidney is also imaged measuring up to 13.1 cm and appears unremarkable. IMPRESSION: There are two lesions within the area of concern, largest of which measures up to 4.3 cm which are isoechoic to adjacent subcutaneous fat suggesting lipomas. The above report was generated using voice recognition software. It may contain grammatical, syntax or spelling errors. Electronically signed by: Clarke Joe M.D. 04/02/2017 11:32 AM Dictated Date/Time: 04/02/2017 11:29 AM
== END | disposition home or self-care (01) ==
LOC: C.ULTR 10:46
PROVIDERS: ATTEND Physician Assistant Medical
DX: R22.9 Localized swelling, mass and lump, unspecified (principal)

== ENCOUNTER 2017-05-05 18:07 | Emergency (ER) | payer OTHER ==
[~2017-05-05] VITALS: Ht 162.6 cm; Wt 122.7 kg
[~2017-05-05 18:07] MED LIST changes: -URC10 PO
[2017-05-05 18:13] VITALS: TEMP 37.2; Ht 162.6 cm; Wt 122.7 kg
[2017-05-05] MEDS ORDERED: ACETAMINOPHEN 500 MG TAB PO STA (18:42)
[2017-05-05] MEDS ORDERED: ALBUT/IPRATROP 3MG/0.5MG NEB 3 ML VIAL INH STA (18:42)
--- NOTE | 2017-05-05 18:58 | EMERGENCY ROOM VISIT NOTE ---
History First contact with patient: 18:22 Chief Complaint: COUGH Stated Complaint: COLD, CAN'T BREATH, THROAT History of Present Illness The patient is a 51 year old female with a PMHx of Asthma poorly controlled on bi weekly on Albuterol presents to the ER with worsening shortness of breath and cough. Pt lives with her bernarde who helps with the history. Pt and her fiance report picking up a virus around two weeks ago at a family event, her was also recently sick. Patient has been using her Albuterol 3x / week and an over the counter medication that she thinks is Mucinex. Patients cough has been lasting for two weeks and she has had white phlegm for one day. The cough is worse at night. Pt does not smoke although the fiance smokes in the basement. According to bernard patient has been on Prednisone in the past. PMHx: Surgery for esophageal thickening. SHX: does not work. ROS: chronic LE pain specifically left calf cramping at night x many years. Chest pain starting today at rest. Chronic SOB. Throat Hurts. One episode of Diarrhea 2 days ago. L ear pain x 5 days. No dysuria. Chronic difficulty with swallowing. Review of Systems See HPI for pertinent positives and negatives. A total of ten systems were reviewed and were otherwise negative. Past Medical/Surgical History Medical Problems: (1) Asthma (2) HTN (hypertension) (3) Kidney stone Family History Cancer Diabetes mellitus FHx: gallbladder disease Hypertension Kidney disease Seizures Social History Smoking Status: Never Smoker Alcohol Use: none Marital Status: Housing Status: lives with significant other Occupation Status: unemployed Current/Historical Medications Scheduled Beclomethasone Dip (Qvar), 1 PUFF PO BID Cyanocobalamin (Vitamin B-12), 100 MCG PO QAM Lisinopril (Zestril), 40 MG PO DAILY Omeprazole (Prilosec), 20 MG PO BID Potassium Citrate (Potassium Citrate), 10 MEQ PO QAM Prednisone (Prednisone), 50 MG PO DAILY Sucralfate (Carafate), 1 GM PO ACHS Tamsulosin Hcl (Flomax), 0.4 MG PO HS Scheduled PRN Acetaminophen (Tylenol), 500 MG PO Q6H PRN for Pain Cyclobenzaprine Hcl (Flexeril), 10 MG PO HS PRN for Muscle Spasm Loratadine (Claritin), 10 MG PO DAILY PRN for Allergy Symptoms Ranitidine (Zantac), 150 MG PO BID PRN for Indigestion Physical Exam Vital Signs Date Time Temp Pulse Resp B/P (MAP) Pulse Ox O2 Delivery O2 Flow Rate FiO2 05/05/17 21:20 99 16 177/97 94 Room Air 05/05/17 19:47 74 20 157/98 100 Room Air 05/05/17 19:39 83 05/05/17 19:29 96 Room Air 05/05/17 19:22 96 Room Air 05/05/17 18:13 37.2 91 18 198/84 95 Room Air Physical Exam Gen: No acute distress. Pleasant affect. Morbidly obese. Fiance is present in the room during the exam. HEENT: Head - normocephalic and atraumatic. Pupils are equal, round, and reactive to light. Extraocular eye muscles are intact and sclera are anicteric. Ears - bilaterally patent canals with slightly erythematous TMs bilaterally, no evidence of hemotympanum. Nose - moist nasal mucosa without discharge. Mouth - moist buccal mucosa. Oropharynx is nonerythematous and there is no tonsillar exudate or edema noted. Neck: Supple; no JVD, nuchal rigidity, cervical lymphadenopathy, or auscultated bruits. Heart: Regular rate and rhythm. There is a normal S1 and S2 with no murmurs, clicks, or gallops appreciated. Lungs: Inspiratory and expiratory wheezing with coarse breath sounds in all lung oropeza, worse in the bases. Abdomen: Soft, completely nontender, nondistended, with good bowel sounds. There are no palpable pulsatile masses or hepatosplenomegaly. There is no guarding, rigidity, or rebound noted. Extremities: No evidence of cyanosis, clubbing, or edema. There are easily palpable peripheral pulses. No calf tenderness bilaterally although the patient did startle when I first examined her left calf. Neuro:The patient is awake and alert, oriented to day, time, and place. Muscle strength is 5/5 in all 4 extremities. The patient has equal terrazzo tile setter strength and equal pedal push and pull. There are no cerebellar signs. Medical Decision & Procedures ER Provider Diagnostic Interpretation: CHEST ONE VIEW PORTABLE CLINICAL HISTORY: EVALUATE RESPIRATORY DISTRESS.DYSPNEA dyspnea COMPARISON STUDY: 01/01/2017 FINDINGS: The bones soft tissues and hemidiaphragms are normal. The cardiomediastinal silhouette is normal. The lungs are clear. The pulmonary vasculature is normal. IMPRESSION: Negative chest. Laboratory Results 05/05/17 19:35 Red Blood Count 4.68, Mean Corpuscular Volume 79.5, Mean Corpuscular Hemoglobin 25.6, Mean Corpuscular Hemoglobin Concent 32.3, Mean Platelet Volume 9.2, Neutrophils (%) (Auto) 48.0, Lymphocytes (%) (Auto) 37.3, Monocytes (%) (Auto) 9.4, Eosinophils (%) (Auto) 4.7, Basophils (%) (Auto) 0.4, Neutrophils # (Auto) 2.56, Lymphocytes # (Auto) 1.99, Monocytes # (Auto) 0.50, Eosinophils # (Auto) 0.25, Basophils # (Auto) 0.02 05/05/17 19:35 Test 05/05/17 19:28 05/05/17 19:35 Influenza Type A Antigen Neg for Influ A (NEG) Influenza Type B Antigen Neg for Influ B (NEG) White Blood Count 5.33 K/uL (4.8-10.8) Red Blood Count 4.68 M/uL (4.2-5.4) Hemoglobin 12.0 g/dL (12.0-16.0) Hematocrit 37.2 % (37-47) Mean Corpuscular Volume 79.5 fL (80-100) Mean Corpuscular Hemoglobin 25.6 pg (25-34) Mean Corpuscular Hemoglobin Concent 32.3 g/dl (32-36) Platelet Count 206 K/uL (130-400) Mean Platelet Volume 9.2 fL (7.4-10.4) Neutrophils (%) (Auto) 48.0 % Lymphocytes (%) (Auto) 37.3 % Monocytes (%) (Auto) 9.4 % Eosinophils (%) (Auto) 4.7 % Basophils (%) (Auto) 0.4 % Neutrophils # (Auto) 2.56 K/uL (1.4-6.5) Lymphocytes # (Auto) 1.99 K/uL (1.2-3.4) Monocytes # (Auto) 0.50 K/uL (0.11-0.59) Eosinophils # (Auto) 0.25 K/uL (0-0.5) Basophils # (Auto) 0.02 K/uL (0-0.2) RDW Standard Deviation 49.5 fL (36.4-46.3) RDW Coefficient of Variation 17.1 % (11.5-14.5) Immature Granulocyte % (Auto) 0.2 % Immature Granulocyte # (Auto) 0.01 K/uL (0.00-0.02) Prothrombin Time 10.2 SECONDS (9.0-12.0) Prothromb Time International Ratio 1.0 (0.9-1.1) Activated Partial Thromboplast Time 25.0 SECONDS (21.0-31.0) Partial Thromboplastin Ratio 1.0 Anion Gap 8.0 mmol/L (3-11) Est Creatinine Clear Calc Drug Dose 119.9 ml/min Estimated GFR () 113.5 Estimated GFR (Non- 97.9 BUN/Creatinine Ratio 21.0 (10-20) Calcium Level 9.5 mg/dl (8.5-10.1) Troponin I < 0.015 ng/ml (0-0.045) Medications Administered Medications (Trade) Dose Ordered Sig/Yazmin Route Start Time Stop Time Status Last Admin Dose Admin Acetaminophen (Tylenol Tab) 1,000 mg NOW STAT PO 05/05/17 18:42 05/05/17 18:46 DC 05/05/17 19:41 1,000 MG Albuterol/ Ipratropium (Duoneb) 9 ml NOW STAT INH 05/05/17 18:42 05/05/17 18:46 DC 05/05/17 19:40 9 ML Methylprednisolone Sodium Succinate (Solu-Medrol IV) 125 mg STK-MED ONCE .ROUTE 05/05/17 19:13 05/05/17 19:14 DC 05/05/17 19:40 125 MG Montelukast Sodium (Singulair Tab) 10 mg NOW ONCE PO 05/05/17 21:00 05/05/17 21:01 DC 05/05/17 21:18 10 MG ECG Rhythm: normal sinus (rate of 76) Findings: no acute ischemic change, no ectopy, other (normal axis, no ST changes) Medical Decision The patient's care and disposition was discussed with Dr. Jones, Attending ED Physician. This is a 51F with cough and SOB. Differential diagnosis include pneumonia, bronchitis, COPD/Asthma exacerbation, pneumothorax, pulmonary embolism, congestive heart failure, acute coronary syndrome. Triage Nursing notes were reviewed. ED Course included an extensive history and physical exam, labs, EKG, Troponin, Xray, Flu swab and rapid strep test. Well's Criteria was analyzed and the score was -1 (-2 for Alternative more probable diagnosis and +! for Localized tenderness in the left calf). 6:40pm Duonebs were ordered. 7:10pm Xray reviewed (negative), 125mg IV Solu Medrol was ordered. CBC, BNP, Troponins - WNL EKG - NSR and normal axis, no ST changes. XRAY - WNL Influenza - Negative. Rapid Strep - Negative 8:45pm- Patient was reevaluated and was doing better, still wheezing on exam, patient was also given a dose of Singulair. Was watching TV comfortably in the room. The pt was informed about the findings as listed above. All questions were answered. Return instructions were outlined and the patient was discharged in good condition. The patient was referred to PCP for recheck of the current condition. Impression Primary Impression: Upper respiratory infection Additional Impression: Asthma Departure Information Dispostion Home / Self-Care Condition GOOD Prescriptions Beclomethasone Dip (Qvar) 80 Mcg/Act Aer 1 PUFF PO BID for 14 Days, #1 INHALER Prov: Jaden Rosa M.D. 05/05/17 Prednisone (PREDNISONE) 50 Mg Tab 50 MG PO DAILY for 4 Days, #4 TAB Prov: Jaden Rosa M.D. 05/05/17 Referrals Allan Dupont M.D. (PCP) Patient Instructions Asthma - [facility], [facility], Prednisone tablets Additional Instructions You are being diagnosed with an Upper Respiratory Tract infection that is making your Asthma worse. You should be taking your Albuterol up to every 4 hours for cough or shortness of breath. You were given a dose of intravenous steroids in the ER. You will be prescribed a 4 day course of oral steroids. You can start the oral Prednisone tomorrow. You are also being prescribed another inhaler called QVAR. You should use this inhaler every 12 hours for the next two weeks. An information packed on Asthma and Prednisone is being printed for you. Please read this information carefully. Your lab work, Xray results, flu swab and strep throat test were all negative( normal). Please keep your PCP appointment next week for a follow up for this ER visit. Resident Tracking Resident Involvement: Resident Care Provided Care Provided: Adult Hospital Medicine Problem Qualifiers
--- NOTE | 2017-05-05 19:01 | DIAGNOSTIC IMAGING REPORT ---
CHEST ONE VIEW PORTABLE CLINICAL HISTORY: EVALUATE RESPIRATORY DISTRESS.DYSPNEA dyspnea COMPARISON STUDY: 01/01/2017 FINDINGS: The bones soft tissues and hemidiaphragms are normal. The cardiomediastinal silhouette is normal. The lungs are clear. The pulmonary vasculature is normal. IMPRESSION: Negative chest. The above report was generated using voice recognition software. It may contain grammatical, syntax or spelling errors. Electronically signed by: Jaden Freeman M.D. 05/05/2017 7:00 PM Dictated Date/Time: 05/05/2017 6:59 PM
[2017-05-05] MEDS ORDERED: METHYLPREDNISOLONE 125 MG VIAL IV STA (19:09)
[2017-05-05] MEDS ORDERED: CYCL10TA6 PO (19:13)
[2017-05-05] MEDS ORDERED: LORA10TA6 PO (19:13)
[2017-05-05] MEDS ORDERED: METHYLPREDNISOLONE 125 MG VIAL ONE (19:13)
[2017-05-05] MEDS ORDERED: LISI40TA PO (19:13)
[2017-05-05] MEDS ORDERED: PRLSR20 PO (19:13)
[2017-05-05 19:22] VITALS: O2SAT 96
[2017-05-05 19:46] LABS: BASO % 0.4 %; BASO ABS # 0.02 K/uL (0-0.2); EOS % 4.7 %; EOS ABS # 0.25 K/uL (0-0.5); HEMATOCRIT 37.2 % (37-47); IG# 0.01 K/uL (0.00-0.02); LYMPH % 37.3 %; LYMPH ABS # 1.99 K/uL (1.2-3.4); MEAN CELL VOLUME 79.5 fL (80-100); MEAN CORPUSCULAR HEMOGLOBIN 25.6 pg (25-34); MEAN CORPUSCULAR HGB CONC 32.3 g/dl (32-36); MEAN PLATELET VOLUME 9.2 fL (7.4-10.4); MONO % 9.4 %; NEUT ABS # 2.56 K/uL (1.4-6.5); PLATELET COUNT 206 K/uL (130-400); RED CELL DISTRIBUTION WIDTH CV 17.1 % (11.5-14.5); RED CELL DISTRIBUTION WIDTH SD 49.5 fL (36.4-46.3); WHITE BLOOD COUNT 5.33 K/uL (4.8-10.8)
[2017-05-05 20:01] LABS: BLOOD UREA NITROGEN 15 mg/dl (7-18); CALCIUM 9.5 mg/dl (8.5-10.1); CARBON DIOXIDE 27 mmol/L (21-32); CREATININE 0.71 mg/dl (0.60-1.20); GLUCOSE 110 mg/dl (70-99); SODIUM 138 mmol/L (136-145)
[2017-05-05 20:09] LABS: INFLUENZA B ANTIGEN Neg for Influ B (NEG)
[2017-05-05] MEDS ORDERED: MONTELUKAST SOD 10 MG TAB PO ONE (21:00)
--- NOTE | 2017-05-05 21:33 | EMERGENCY ROOM VISIT NOTE ---
ED Visit Note First contact with patient: 18:18 The patient was seen and examined with Dr. Rosa. I agree with the history , physical and findings. Please see the note for disposition and details.
[2017-05-05] MEDS ORDERED: PRED50TA PO (21:44)
[2017-05-05] MEDS ORDERED: QVRINH80 PO (21:46)
[2017-05-05 22:20] VITALS: BP 166/97; PULSE 92; O2SAT 95
[2017-05-05] MEDS ORDERED: URC10 PO (22:59)
--- NOTE | 2017-05-06 16:37 | Pharmacy Progress Note ---
ED Pharmacist Progress Note Date of Service: May 06, 2017. Patient seen yesterday called requesting a prescription for albuterol nebulizers , which appeared to be discontinued by accident. Per the resident who saw the patient, Dr. Rosa, I called in a prescription for albuterol nebulizer 2.5mg/3ml QID PRN SOB X 7 days. I relayed this information to the patient who confirmed she will follow up with her PCP next week.
== END 2017-05-05 22:20 | disposition home or self-care (01) ==
LOC: C.EDB 18:08 → C.EDA 22:20
DX: J06.9 Acute upper respiratory infection, unspecified (principal); J45.901 Unspecified asthma with (acute) exacerbation; I10 Essential (primary) hypertension; Z79.899 Other long term (current) drug therapy; R25.2 Cramp and spasm

== ENCOUNTER → 2017-05-25 | Outpatient (CLI) | payer OTHER ==
[~2017-05-25] MED LIST changes: -ALBINS/ INH; +CYCL10TA6 PO; +FUROSEMIDE INJ 10 MG/ML 2 ML VIAL IV ONE; -LISI-461 PO; +LISI40TA PO; +LORA10TA6 PO; -MELO15TA4 PO; -ONDA4TAB46 SL; +PRLSR20 PO; +QVRINH80 PO; +URC10 PO; -VNTHFA/IN INH
--- NOTE | 2017-05-25 11:21 | DIAGNOSTIC IMAGING REPORT ---
RENAL SCAN DIURETIC (MAG 3) CLINICAL HISTORY: 51 years-old Female presenting with N13.30 HydronephrosisNO PRECERT REQUIRED PER ELISSA @ [facility]. TECHNIQUE: A nuclear diuretic renal scan is performed following the IV administration of 8.716 mCi technetium 99m radiolabeled MAG3. Posterior blood flow images were acquired at one frame every two seconds for a total 30 frames. Posterior static cortical phase images were acquired every 5 minutes for a total of 45 minutes. 20 mg of IV Lasix was administered at 20 minutes. Renal curves were calculated. COMPARISON: CT of abdomen pelvis from 03/18/2017. FINDINGS: On the blood flow phase images, prompt and symmetric perfusion of both kidneys.. On the cortical phase images, normal accumulation of radiotracer in the renal parenchyma and excretion into the renal collecting systems and bladder. Subsequently, clearance phase imaging demonstrates time to peak on the right measuring 11 minutes and on the left was measuring 8 minutes. The time from max to half max pre-Lasix on the right measures 10 minutes and on the left measures 11 minutes. The time to half post Lasix on the right measures 7 minutes and on the left measures 17 minutes. No abnormal retention of radiotracer in the collecting systems after furosemide administration. Right: Ratio of counts at 20 minutes/3 minutes: 0.69. Ratio of counts at 20 minutes/peak: 0.52. Left: Ratio of counts at 20 minutes/3 minutes: 0.53. Ratio of counts at 20 minutes/peak: 0.42. Split function measurements of 51% on the right and 49% on the left. Reference ranges: Normal time to peak: 3 to 5 minutes. Normal time from max to half max pre-Lasix: 8-12 minutes. Ratio of counts at 20 minutes/3 minutes should be less than 0.8 and 20 minutes/peak less than 0.3. Washout of at least 50% of tracer within 10 minutes post Lasix normal; if greater than 50% retention between 10 to 20 minutes post Lasix, indeterminate for obstruction; if greater than 50% retention beyond 20 minutes, suspected obstruction. IMPRESSION: 1. No obstruction. Slightly decreased renal plasma flow bilaterally, greater on the left. 2. Relative renal function on the right 51% and on the left kidney 49%. Electronically signed by: Mark Clark M.D. 05/25/2017 11:20 AM Dictated Date/Time: 05/25/2017 11:05 AM
== END | disposition home or self-care (01) ==
LOC: C.NUCL 08:42
PROVIDERS: ATTEND Urology
DX: N13.30 Unspecified hydronephrosis (principal)

== ENCOUNTER → 2017-06-10 | Outpatient (CLI) | payer OTHER ==
[~2017-06-10] MED LIST changes: -ACET-1256 PO; +B-CO1CAP17 PO; -CYAN100T PO; -CYCL10TA6 PO; -FUROSEMIDE INJ 10 MG/ML 2 ML VIAL IV ONE; -LORA10TA6 PO; +MAGN500C PO; +MELO7.5T5 PO; +OXYC1TAB3 PO; -QVRINH80 PO; +RANI150T85 PO; -SUCR1TAB29 PO; +VITATAB PO; -ZNTT/150 PO
[2017-06-10 12:50] LABS: GLUCOSE,FASTING 107 mg/dl (70-99)
== END | disposition home or self-care (01) ==
LOC: C.LABBFT 08:11
PROVIDERS: ATTEND Physician Assistant
DX: M79.604 Pain in right leg (principal); M79.605 Pain in left leg; M79.1 Myalgia

== ENCOUNTER 2017-06-19 20:22 | Emergency (ER) | payer OTHER ==
[~2017-06-19] VITALS: Ht 162.6 cm; Wt 127.0 kg
[~2017-06-19 20:22] MED LIST changes: -OXYC1TAB3 PO; -URC10 PO
[2017-06-19 20:28] VITALS: TEMP 37.2; Ht 162.6 cm; Wt 127.0 kg
[2017-06-19] MEDS ORDERED: ONDANSETRON INJ 2 MG/ML 2 ML VIAL IV STA (20:45)
[2017-06-19] MEDS ORDERED: KETOROLAC TROMETHAMINE 30 MG/ML VIAL IV STA (20:45)
[2017-06-19] MEDS ORDERED: FENTANYL CITRATE INJ 50 MCG/1 ML 2 ML VIAL IV ONE (20:45)
--- NOTE | 2017-06-19 20:50 | EMERGENCY ROOM VISIT NOTE ---
History Report prepared by Obinna: Kirill Gutierrez Under the Supervision of: Dr. Fernando Jones M.D. First contact with patient: 20:31 Chief Complaint: ABDOMINAL PAIN Stated Complaint: SEVER RIGHT SIDE PAIN AND LEGS History of Present Illness The patient is a 51 year old white female with a past medical history of HTN, asthma, CVA, DDD, cholecystectomy, and bilateral kidney stones who presents to the ED with a cc of constant lower abdominal pain beginning two weeks ago. She rates her pain as a 10/10 in severity. She describes the pain as a burning ache. The patient states that she used Bengay, Tylenol, and Ibuprofen for her symptoms without any relief. Positive bilateral LE pain, nausea, back pain, urinary burning sensation. Negative vomiting, diarrhea, hematuria, blood thinners, alcohol, drug, or tobacco use. The patient states that she was at pain management in May where she had tests done. She reports that her test show abnormal kidney functioning. Per the patient's EMR, the patient has a pending EMG and lumbar MRI. Source of History: patient Onset: two weeks ago Position: abdomen Symptom Intensity: 10/10 Quality: ache, burning Timing: constant Modifying Factors (Relieving): tylenol, ibuprofen, other (Bengay) Associated Symptoms: + nausea, + back pain, + urinary symptoms, No vomiting , No diarrhea Note: Associated symptoms: Bilateral LE pain Review of Systems See HPI for pertinent positives and negatives. A total of ten systems were reviewed and were otherwise negative. Past Medical & Surgical Medical Problems: (1) Anxiety (2) Asthma (3) Depression (4) History of nephrolithiasis (5) History of seizure disorder (6) HTN (hypertension) (7) Kidney stone (8) Obesity Surgical Problems: (1) History of cholecystectomy (2) History of lithotripsy Family History Cancer Diabetes mellitus FHx: gallbladder disease Hypertension Kidney disease Seizures Social History Smoking Status: Never Smoker Alcohol Use: none Marital Status: Housing Status: lives with significant other Occupation Status: unemployed Current/Historical Medications Scheduled Lisinopril (Zestril), 40 MG PO DAILY Magnesium Oxide (Mg Supplement (Magnesium), 500 MG PO DAILY Meloxicam (Mobic), 15 MG PO DAILY Omeprazole (Prilosec), 20 MG PO BID Potassium Citrate (Potassium Citrate), 10 MEQ PO QAM Tamsulosin Hcl (Flomax), 0.4 MG PO HS Vitamin B Cmplx/Vitc/Folic Ac (Nephrocaps), 1 CAP PO DAILY Vitamins W/ Lipotropics (Balance B-100), 10 MG PO DAILY Scheduled PRN Oxycodone Immediate Rel Tab (Roxicodone Ir), 1 TAB PO TID PRN for Pain Ranitidine (Zantac), 150 MG PO BID PRN for Indigestion Allergies Coded Allergies: Morphine (Verified Allergy, Intermediate, HIVES, 03/18/17) Meperidine (Verified Adverse Reaction, Intermediate, NAUSEA, 03/18/17) Physical Exam Vital Signs Date Time Temp Pulse Resp B/P (MAP) Pulse Ox O2 Delivery O2 Flow Rate FiO2 06/19/17 22:16 68 16 140/72 97 Room Air 06/19/17 21:10 79 06/19/17 21:09 85 20 159/76 94 Room Air 06/19/17 20:28 37.2 91 20 154/104 96 Room Air Physical Exam GENERAL: Awake, alert, well-appearing, NAD, obese HENT: Normocephalic, atraumatic. EYES: Normal conjunctiva. Sclera non-icteric. NECK: Supple. No nuchal rigidity. FROM. RESPIRATORY: CTAB, no rhonchi, wheezing, crackles CARDIAC: RRR, no MRG ABDOMEN: Soft, mild RUQ TTP, ND, BS+, nonsurgical abdomen. MSK: No chest wall TTP, no LE edema, Right sided CVA TTP. NEURO: GCS 15, CN 2-12 intact, moves all 4s on command, no saddle anesthesia, 5/ 5 strength LE bilaterally, no sensory deficits. SKIN: No rash or jaundice noted. Medical Decision & Procedures ER Provider Diagnostic Interpretation: Radiology results as stated below per my review and radiologist interpretation: ABD/PELVIS NO IV OR ORAL CONT CLINICAL HISTORY: 51 years-old Female presenting with R sided flank and back pain. TECHNIQUE: Multidetector CT of the abdomen and pelvis was performed without the use of intravenous contrast. IV contrast: None. A dose lowering technique was used consistent with the principles of ALARA (as low as reasonably achievable). COMPARISON: 03/18/2017. CT DOSE (mGy.cm): The estimated cumulative dose is 1669.91 mGy.cm. 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 Lung bases: Lungs and pleural spaces clear. Normal heart size. No pericardial or pleural effusion. Liver: Normal morphology. Density consistent with hepatic steatosis. Parenchymal calcification noted. Biliary: No gross biliary ductal dilatation allowing for noncontrast technique. Gallbladder surgically absent. Pancreas: Normal noncontrast appearance. Spleen: Normal noncontrast appearance. Adrenal glands: Normal noncontrast appearance. Kidneys and ureters: Multiple punctate renal calculi bilaterally, which are nonobstructing. Otherwise normal noncontrast appearance of the kidneys. No hydronephrosis. Ureters normal. Bladder: Incompletely evaluated secondary to underdistention. Pelvic organs: Normal noncontrast appearance. Bowel: Normal appendix. No bowel obstruction. Peritoneal cavity: No free fluid or intraperitoneal gas. Lymph nodes: No gross lymphadenopathy allowing for noncontrast technique. Vasculature: Normal noncontrast appearance. Abdominal wall: Small fat-containing umbilical hernia. Large pannus. Musculoskeletal: Degenerative changes of the spine. IMPRESSION: 1. Multiple bilateral punctate nonobstructing renal calculi. No hydronephrosis. No ureteral calculi. 2. Hepatic steatosis. Correlate with liver function tests to exclude steatohepatitis as a cause for abdominal pain. Electronically signed by: Mark Clark M.D. 06/19/2017 10:21 PM Dictated Date/Time: 06/19/2017 10:15 PM L WRIST MIN 3 VIEWS ROUTINE CLINICAL HISTORY: 51 years-old Female presenting with pain in wrist. TECHNIQUE: Frontal, bilateral oblique, and lateral views of the left wrist were obtained. COMPARISON: 02/21/2016. FINDINGS: No acute fracture or malalignment. No advanced degenerative change. No radiographic soft tissue abnormality. IMPRESSION: No acute osseous injury. Electronically signed by: Mark Clark M.D. 06/19/2017 10:50 PM Dictated Date/Time: 06/19/2017 10:48 PM Laboratory Results 06/19/17 20:55 Red Blood Count 4.25, Mean Corpuscular Volume 79.8, Mean Corpuscular Hemoglobin 26.8, Mean Corpuscular Hemoglobin Concent 33.6, Mean Platelet Volume 8.9, Neutrophils (%) (Auto) 41.7, Lymphocytes (%) (Auto) 40.4, Monocytes (%) (Auto) 11.8, Eosinophils (%) (Auto) 5.1, Basophils (%) (Auto) 0.8, Neutrophils # (Auto ) 2.13, Lymphocytes # (Auto) 2.06, Monocytes # (Auto) 0.60, Eosinophils # (Auto ) 0.26, Basophils # (Auto) 0.04 06/19/17 20:55 Test 06/19/17 20:45 06/19/17 20:55 Urine Color YELLOW Urine Appearance TURBID (CLEAR) Urine pH 7.5 (4.5-7.5) Urine Specific [place] 1.021 (1.000-1.030) Urine Protein NEG (NEG) Urine Glucose (UA) NEG (NEG) Urine Ketones NEG (NEG) Urine Occult Blood NEG (NEG) Urine Nitrite NEG (NEG) Urine Bilirubin NEG (NEG) Urine Urobilinogen NEG (NEG) Urine Leukocyte Esterase NEG (NEG) Urine WBC (Auto) 1-5 /hpf (0-5) Urine RBC (Auto) 0-4 /hpf (0-4) Urine Hyaline Casts (Auto) 0 /lpf (0-5) Urine Epithelial Cells (Auto) >30 /lpf (0-5) Urine Bacteria (Auto) NEG (NEG) Urine Test NEG (NEG) White Blood Count 5.10 K/uL (4.8-10.8) Red Blood Count 4.25 M/uL (4.2-5.4) Hemoglobin 11.4 g/dL (12.0-16.0) Hematocrit 33.9 % (37-47) Mean Corpuscular Volume 79.8 fL (80-100) Mean Corpuscular Hemoglobin 26.8 pg (25-34) Mean Corpuscular Hemoglobin Concent 33.6 g/dl (32-36) Platelet Count 188 K/uL (130-400) Mean Platelet Volume 8.9 fL (7.4-10.4) Neutrophils (%) (Auto) 41.7 % Lymphocytes (%) (Auto) 40.4 % Monocytes (%) (Auto) 11.8 % Eosinophils (%) (Auto) 5.1 % Basophils (%) (Auto) 0.8 % Neutrophils # (Auto) 2.13 K/uL (1.4-6.5) Lymphocytes # (Auto) 2.06 K/uL (1.2-3.4) Monocytes # (Auto) 0.60 K/uL (0.11-0.59) Eosinophils # (Auto) 0.26 K/uL (0-0.5) Basophils # (Auto) 0.04 K/uL (0-0.2) RDW Standard Deviation 52.3 fL (36.4-46.3) RDW Coefficient of Variation 17.9 % (11.5-14.5) Immature Granulocyte % (Auto) 0.2 % Immature Granulocyte # (Auto) 0.01 K/uL (0.00-0.02) Anion Gap 6.0 mmol/L (3-11) Est Creatinine Clear Calc Drug Dose 101.0 ml/min Estimated GFR () 90.0 Estimated GFR (Non- 77.7 BUN/Creatinine Ratio 18.4 (10-20) Calcium Level 9.6 mg/dl (8.5-10.1) Total Bilirubin 0.2 mg/dl (0.2-1) Direct Bilirubin < 0.1 mg/dl (0-0.2) Aspartate Amino Transf (AST/SGOT) 43 U/L (15-37) Alanine Aminotransferase (ALT/SGPT) 46 U/L (12-78) Alkaline Phosphatase 95 U/L (45-117) Total Protein 7.2 gm/dl (6.4-8.2) Albumin 3.2 gm/dl (3.4-5.0) Lipase 148 U/L (73-393) Laboratory results reviewed by me Medications Administered Medications (Trade) Dose Ordered Sig/Yazmin Route Start Time Stop Time Status Last Admin Dose Admin Ondansetron HCl (Zofran Inj) 4 mg NOW STAT IV 06/19/17 20:45 06/19/17 20:47 DC 06/19/17 21:02 4 MG Ketorolac Tromethamine (Toradol Inj) 30 mg NOW STAT IV 06/19/17 20:45 06/19/17 20:47 DC 06/19/17 21:03 30 MG Fentanyl Citrate (Fentanyl Inj) 100 mcg NOW ONCE IV 06/19/17 20:45 06/19/17 20:47 DC 06/19/17 21:03 100 MCG Tramadol HCl (Ultram Tab) 50 mg NOW STAT PO 06/19/17 22:22 06/19/17 22:25 DC 06/19/17 22:31 50 MG ED Course 2032: The patient was evaluated in room C03. A complete history and physical exam was performed. 2303: I reevaluated the patient. Discussed results and discharge instructions: She verbalized understanding and agreement. The patient is ready for discharge. Medical Decision Triage Nursing notes reviewed. Prior records reviewed. The patient is a 51 year old white female with a past medical history of HTN, asthma, CVA, DDD, cholecystectomy, and bilateral kidney stones who presents to the ED with a cc of constant lower abdominal pain beginning two weeks ago. The patient's presentation and history were concerning for etiologies such as appendicitis, diverticulitis, PUD, biliary pathology, UTI, pancreatitis, obstruction, mesenteric ischemia, aortic pathology, infections, inflammatory bowel disease, renal colic, as well as others were entertained. Patient was seen and evaluated the bedside. Patient does have complaints of some right-sided back and flank pain. Upon review of the medical records, patient has been worked up for this several times and it has recently seen pain management and she is expending an EMG as well as an MRI of the lumbar spine. On exam the patient does have some mild discomfort. Patient has a nonsurgical abdomen. Patient did have blood work completed along with urinalysis and urine test. Patient was treated with medications for symptom control. The patient does not exhibit any symptoms of cauda equina as the patient denies any saddle anesthesia and has not had any urinary incontinence. Patient does have some chronic anemia but is fairly stable. Patient's urinalysis was negative for infection. Patient's urine test negative. Patient did have a CT of the abdomen and pelvis completed. Patient's blood work is fairly unremarkable. Patient does have some chronic stable anemia. Patient does have mild but nondiagnostic elevation in LFTs. Patient does have a history of fatty liver. This is confirmed on CT of the abdomen pelvis. Patient does have nonobstructing punctate kidney stones. Patient was informed of all these findings. Patient was feeling improved. Of note the patient was concerned about her left wrist and she had broken in the past and that she had hit it earlier today. Patient does have a list from wrist films negative acute. Patient was deemed suitable for outpatient follow-up and treatment at this time. I did review the STORE SPECIALIST and the patient has not had any narcotic medication since February. Patient was given outpatient Rx. I did explain to the patient that this is habit forming and should not be used if she requires her full attention and that it can cause some respiratory inhibition. She is aware. Patient was given strict follow-up, discharge, and return precautions. All questions were answered. Patient was deemed suitable for outpatient follow-up at this time. Patient agreed with the plan of care and was safely discharged home. [place] Drug [place] Search Results: patient reviewed within database, see additional documentation Drug Monitoring Findings: Has not received narcotics since February. Medication Reconcilliation Current Medication List: was personally reviewed by me Blood Pressure Screening Patient's blood pressure: Elevated blood pressure Blood pressure disposition: Referred to PCP Impression Primary Impression: Anemia Additional Impressions: Hepatic steatosis Kidney stone Scribe Attestation The scribe's documentation has been prepared under my direction and personally reviewed by me in its entirety. I confirm that the note above accurately reflects all work, treatment, procedures, and medical decision making performed by me. Departure Information Dispostion Home / Self-Care Prescriptions Oxycodone Immediate Rel Tab (ROXICODONE IR) 5 Mg Tab 1 TAB PO TID Y for Pain for 30 Days, #12 TAB Prov: Fernando Jones M.D. 06/19/17 Referrals Allan Dupont M.D. (PCP) Patient Instructions Abdominal Pain, My [facility] [place] Additional Instructions Please return to the emergency department if you have worsening or recurrent symptoms not amenable to at-home treatment. Please call for a follow-up appointment with her primary care physician. Please take your medications as prescribed. If you have other concerns and/or complaints please feel free to also call your primary care physician's office or return the ED for further evaluation, management, and treatment. You were found to have an elevated blood pressure today (>120 sytolic or >90 diastolic). Per medicare guidelines, you need to follow up with this blood pressure screening with your Primary Care Physician (PCP). For a new PCP call [phone]. You received narcotic or benzodiazepene medication while in the emergency room today. This is an addictive medication that may cause drowziness as well as constipation. Do not drive, operate heavy machinery, or drink alcohol under the influence of this medication. You may take 600 mg Ibuprofen every 6 hours as needed for pain with food for no more than 2 consecutive days. You may take tylenol 1000 mg every 6 hours as needed for pain. You may take motrin and tylenol separately or at the same time. Take your medications as prescribed. You have been examined and treated today on an emergency basis only. This is not a substitute for, or an effort to provide, complete comprehensive medical care. It is impossible to recognize and treat all injuries or illnesses in a single emergency department visit. It is therefore important that you follow up closely with [facility], your PCP, and/or your specialist(s). Call as soon as possible for an appointment. Thank you for your time and consideration. I look forward to speaking with you again soon. Please don't hesitate to call us if you have any questions. Problem Qualifiers Primary Impression: Anemia Anemia type: unspecified type Qualified Codes: D64.9 - Anemia, unspecified
[2017-06-19 21:11] LABS: BASO % 0.8 %; BASO ABS # 0.04 K/uL (0-0.2); EOS % 5.1 %; EOS ABS # 0.26 K/uL (0-0.5); HEMATOCRIT 33.9 % (37-47); HEMOGLOBIN 11.4 g/dL (12.0-16.0); IG# 0.01 K/uL (0.00-0.02); LYMPH % 40.4 %; LYMPH ABS # 2.06 K/uL (1.2-3.4); MEAN CELL VOLUME 79.8 fL (80-100); MEAN CORPUSCULAR HEMOGLOBIN 26.8 pg (25-34); MEAN CORPUSCULAR HGB CONC 33.6 g/dl (32-36); MEAN PLATELET VOLUME 8.9 fL (7.4-10.4); MONO % 11.8 %; NEUT % 41.7 %; NEUT ABS # 2.13 K/uL (1.4-6.5); PLATELET COUNT 188 K/uL (130-400); RED CELL DISTRIBUTION WIDTH CV 17.9 % (11.5-14.5); RED CELL DISTRIBUTION WIDTH SD 52.3 fL (36.4-46.3)
[2017-06-19 21:27] LABS: ALBUMIN 3.2 gm/dl (3.4-5.0); ALT/SGPT 46 U/L (12-78); BLOOD UREA NITROGEN 16 mg/dl (7-18); CALCIUM 9.6 mg/dl (8.5-10.1); CARBON DIOXIDE 27 mmol/L (21-32); CREATININE 0.86 mg/dl (0.60-1.20); GLUCOSE 142 mg/dl (70-99); LIPASE 148 U/L (73-393); POTASSIUM 3.8 mmol/L (3.5-5.1); SODIUM 138 mmol/L (136-145)
[2017-06-19 21:30] LABS: ALKALINE PHOSPHATASE 95 U/L (45-117); AST/SGOT 43 U/L (15-37); TOTAL PROTEIN 7.2 gm/dl (6.4-8.2)
[2017-06-19] MEDS ORDERED: TRAMADOL HCL 50 MG TAB PO STA (22:22)
--- NOTE | 2017-06-19 22:22 | DIAGNOSTIC IMAGING REPORT ---
ABD/PELVIS NO IV OR ORAL CONT CLINICAL HISTORY: 51 years-old Female presenting with R sided flank and back pain. TECHNIQUE: Multidetector CT of the abdomen and pelvis was performed without the use of intravenous contrast. IV contrast: None. A dose lowering technique was used consistent with the principles of ALARA (as low as reasonably achievable). COMPARISON: 03/18/2017. CT DOSE (mGy.cm): The estimated cumulative dose is 1669.91 mGy.cm. 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 Lung bases: Lungs and pleural spaces clear. Normal heart size. No pericardial or pleural effusion. Liver: Normal morphology. Density consistent with hepatic steatosis. Parenchymal calcification noted. Biliary: No gross biliary ductal dilatation allowing for noncontrast technique. Gallbladder surgically absent. Pancreas: Normal noncontrast appearance. Spleen: Normal noncontrast appearance. Adrenal glands: Normal noncontrast appearance. Kidneys and ureters: Multiple punctate renal calculi bilaterally, which are nonobstructing. Otherwise normal noncontrast appearance of the kidneys. No hydronephrosis. Ureters normal. Bladder: Incompletely evaluated secondary to underdistention. Pelvic organs: Normal noncontrast appearance. Bowel: Normal appendix. No bowel obstruction. Peritoneal cavity: No free fluid or intraperitoneal gas. Lymph nodes: No gross lymphadenopathy allowing for noncontrast technique. Vasculature: Normal noncontrast appearance. Abdominal wall: Small fat-containing umbilical hernia. Large pannus. Musculoskeletal: Degenerative changes of the spine. IMPRESSION: 1. Multiple bilateral punctate nonobstructing renal calculi. No hydronephrosis. No ureteral calculi. 2. Hepatic steatosis. Correlate with liver function tests to exclude steatohepatitis as a cause for abdominal pain. Electronically signed by: Mark Clark M.D. 06/19/2017 10:21 PM Dictated Date/Time: 06/19/2017 10:15 PM
--- NOTE | 2017-06-19 22:51 | DIAGNOSTIC IMAGING REPORT ---
L WRIST MIN 3 VIEWS ROUTINE CLINICAL HISTORY: 51 years-old Female presenting with pain in wrist. TECHNIQUE: Frontal, bilateral oblique, and lateral views of the left wrist were obtained. COMPARISON: 02/21/2016. FINDINGS: No acute fracture or malalignment. No advanced degenerative change. No radiographic soft tissue abnormality. IMPRESSION: No acute osseous injury. Electronically signed by: Mark Clark M.D. 06/19/2017 10:50 PM Dictated Date/Time: 06/19/2017 10:48 PM
[2017-06-19] MEDS ORDERED: URC10 PO (22:59)
[2017-06-19] MEDS ORDERED: OXYC1TAB3 PO (23:10)
[2017-06-19] MEDS ORDERED: OXYCODONE IR HOME PACK PO ONE (23:15)
[2017-06-19 23:25] VITALS: BP 135/84; PULSE 64; O2SAT 98
== END 2017-06-19 23:28 | disposition home or self-care (01) ==
LOC: C.EDB 20:23 → C.EDC 23:28
DX: D64.9 Anemia, unspecified (principal); K76.0 Fatty (change of) liver, not elsewhere classified; N20.0 Calculus of kidney; I10 Essential (primary) hypertension; E66.9 Obesity, unspecified; J45.909 Unspecified asthma, uncomplicated; Z90.49 Acquired absence of other specified parts of digestive tract; Z87.442 Personal history of urinary calculi; Z86.73 Personal history of transient ischemic attack (TIA), and cerebral infarction without residual deficits; Z83.3 Family history of diabetes mellitus; Z82.49 Family history of ischemic heart disease and other diseases of the circulatory system; Z83.79 Family history of other diseases of the digestive system; Z84.1 Family history of disorders of kidney and ureter; Z88.6 Allergy status to analgesic agent

== ENCOUNTER → 2017-07-06 | Outpatient (CLI) | payer OTHER ==
[~2017-07-06] MED LIST changes: +OXYC1TAB3 PO; +URC10 PO
[2017-07-06 12:47] LABS: BLOOD UREA NITROGEN 18 mg/dl (7-18); CALCIUM 9.4 mg/dl (8.5-10.1); CARBON DIOXIDE 29 mmol/L (21-32); CREATININE 0.78 mg/dl (0.60-1.20); GLUCOSE 121 mg/dl (70-99); POTASSIUM 4.3 mmol/L (3.5-5.1); SODIUM 137 mmol/L (136-145)
== END | disposition home or self-care (01) ==
LOC: C.LABBFT 08:18
PROVIDERS: ATTEND Physician Assistant Medical
DX: N20.0 Calculus of kidney (principal); R07.89 Other chest pain; I10 Essential (primary) hypertension

== ENCOUNTER → 2017-07-14 | Outpatient (CLI) | payer OTHER ==
[~2017-07-14] MED LIST changes: +CITA40TA4 PO; +HYZ/10015 PO; +TRAZ50TA35 PO
--- NOTE | 2017-07-14 10:25 | DIAGNOSTIC IMAGING REPORT ---
MRI OF THE LUMBAR SPINE WITHOUT IV CONTRAST CLINICAL HISTORY: Low back pain. Bilateral lower extremity radiculopathy. COMPARISON STUDY: Radiographs of the lumbar spine dated 12/17/2016. Abdominal CT dated 06/19/2017. TECHNIQUE: MRI of the lumbar spine is performed utilizing various T1 and T2-weighted sequences in the axial and sagittal planes. IV contrast was not administered for this examination. The examination is degraded by large body habitus. FINDINGS: Lumbar spine: Vertebral body height and alignment are maintained throughout the lumbar spine. Mild hyperlordosis is observed. Normal marrow signal intensity is preserved throughout the visualized osseous structures. The transverse and spinous processes appear intact. There is no evidence of spondylolysis. No destructive bony lesion is seen. Hemangiomas are noted in the bodies of L4 and L5. There is a hemitransitional left-sided lumbosacral segment. Intervertebral discs: There is mild degenerative disc desiccation seen in the lower lumbar region. Minimal loss of height is seen at L3-L4. Spinal cord: The partially visualized spinal cord is normal in morphology and signal intensity. The conus medullaris terminates at the level of L1. The nerve roots of the cauda equina are normal in morphology. T12-L1: Unremarkable. L1-L2: Unremarkable. L2-L3: Unremarkable. L3-L4: Unremarkable. L4-L5: There is minimal posterior disc bulge. The central canal is widely patent. Minimal bilateral subarticular stenosis is observed. Facet arthropathy is of no consequence. The neural foramina are patent. L5-S1: There is a left lateral disc protrusion. This causes subarticular stenosis and likely impinges on the exiting left L5 nerve root. The central canal is patent. Facet arthropathy is of no consequence. The neural foramina are patent. Sacrum: The visualized sacrum is normal in morphology and signal intensity. Soft tissues: The paraspinous soft tissues are within normal limits. The partially imaged retroperitoneal structures are grossly unremarkable, but incompletely assessed. IMPRESSION: 1. There is no disc herniation or central canal stenosis. 2. A left lateral disc bulge at L5-S1 likely impinges on the exiting left L5 nerve root. 3. Mild spondylotic change at additional levels as above. See discussion for level by level analysis. 4. No destructive bony process is seen. Dictated: 07/14/2017 9:48 AM Transcribed: 07/14/2017 10:25 AM Alex Electronically signed by: Almas Powell M.D. 07/14/2017 10:34 AM Dictated Date/Time: 07/14/2017 9:48 AM
== END | disposition home or self-care (01) ==
LOC: C.MRIBC 08:59
PROVIDERS: ATTEND Physician Assistant
DX: M51.17 Intervertebral disc disorders with radiculopathy, lumbosacral region (principal)

== ENCOUNTER → 2017-07-15 | Outpatient (CLI) | payer OTHER ==
[2017-07-15 12:58] LABS: HEMOGLOBIN A1C 6.3 % (4.5-5.6)
== END | disposition home or self-care (01) ==
LOC: C.LABBFT 08:36
PROVIDERS: ATTEND Physician Assistant Medical
DX: R73.9 Hyperglycemia, unspecified (principal)

== ENCOUNTER → 2017-11-04 | Outpatient (CLI) | payer OTHER ==
[~2017-11-04] MED LIST changes: +ACET-1256 PO; +DSY100 PO; +LDDP5 TD; -MELO7.5T5 PO; -OXYC1TAB3 PO; -TAMS0.4C38 PO; -TRAZ50TA35 PO
--- NOTE | 2017-11-04 13:39 | DIAGNOSTIC IMAGING REPORT ---
PELVIC COMPLETE NON OB CLINICAL HISTORY: 51 years-old Female presenting with N92.6 Abnormal menses, G5 peak 5, last muscle. 3 years ago, last month with 2 days of spotting, no history of surgery, negative test, pelvic pain. TECHNIQUE: Real-time grayscale and color and spectral Doppler ultrasound imaging of the pelvis was performed first using a transabdominal probe and subsequently transvaginal for better characterization. COMPARISON: CT from 10/13/2017. FINDINGS: Uterus: Normal. Anteverted retroflexed. The uterus measures 9.6 x 4.3 x 5.7 cm. Endometrial stripe measures 9 mm in thickness. Endometrium heterogeneous with foci of hyperechogenicity, which may indicate degenerative change or hyperplasia. Cervix not well evaluated. Right adnexa: Right ovary not visualized. Left adnexa: Left ovary not visualized. Other: No free fluid. IMPRESSION: Endometrial thickness is greater than expected for a postmenopausal female. In the setting of bleeding, gynecologic consultation recommended for potential endometrial biopsy. Differential considerations include endometrial hyperplasia, endometrial polyp, or endometrial neoplasm. The report will be called/faxed according to standard departmental protocol. Electronically signed by: Mark Clark M.D. 11/04/2017 1:37 PM Dictated Date/Time: 11/04/2017 1:34 PM
== END | disposition home or self-care (01) ==
LOC: C.ULTR 12:08
PROVIDERS: ATTEND Nurse Practitioner
DX: N92.6 Irregular menstruation, unspecified (principal)

== ENCOUNTER → 2017-11-24 | Day surgery (SDC) | payer OTHER ==
[2017-11-19 15:41] VITALS: Ht 162.6 cm; Wt 107.3 kg
[~2017-11-24] VITALS: Ht 162.6 cm; Wt 107.3 kg
[~2017-11-24] MED LIST changes: -B-CO1CAP17 PO; +B-COCAP2 PO; +FENTANYL CITRATE INJ 50 MCG/1 ML 2 ML VIAL ONE; -HYZ/10015 PO; -LDDP5 TD; +LIDOCAINE HCL 2% 2 ML VIAL (20MG/ML) ONE; +MIDAZOLAM HCL 1 MG/ML 2ML VIAL ONE; +ONDANSETRON INJ 2 MG/ML 2 ML VIAL ONE; +PROPOFOL IV EMULSION 10 MG/ML 20 ML VIAL ONE; +SODIUM CHLORIDE 0.9% 500ML 500 ML IV ONE
--- NOTE | 2017-11-24 09:58 | Endo History and Physical ---
History & Physical Date of Service: Nov 24, 2017. Chief Complaint: Referring Physician: DR. MARCOS History of Present Illness 52 yo presenting for evaluation of thickend esophagus, also was to have screening colonoscopy, however, patient did not take preparation. No dysphagia, controlled GERD. Past Medical History Reflux, Hypertension Past Surgical History Hx Cardiac Surgery: No Hx Internal Defibrillator: No Hx Pacemaker: No Hx Abdominal Surgery: Yes (TOÑO, TUBAL LIGATION) Hx of Implantable Prosthesis: No Hx Post-Op Nausea and Vomiting: No Hx Cancer Surgery: No Hx Thoracic Surgery: No Hx Orthopedic: No Hx Urinary Tract Surgery: Yes (LITHOTRIPSY X8, URETAL STENTS) Family History Colon CA Social History Smoking Status: Never Smoker Hx Substance Use: No Hx Alcohol Use: No Allergies Coded Allergies: Morphine (Verified Allergy, Intermediate, HIVES, 11/19/17) Meperidine (Verified Adverse Reaction, Intermediate, NAUSEA, 11/19/17) Current Medications Reported Home Medications Medications Dose Route/Sig Max Daily Dose Days Date Category Tylenol (Acetaminophen) 500 Mg Tab 1,000 Mg PO Q6 PRN 11/02/17 Reported Trazodone HCl 100 Mg Tab 100 Mg PO HS 10/13/17 Reported Citalopram Hydrobromide (Citalopram) 40 Mg Tab 20 Mg PO DAILY 07/21/17 Reported Nephrocaps (Vitamin B Complex/Vit C/Folic Acid) Cap 1 Cap PO DAILY 06/03/17 Reported Magnesium (Magnesium Oxide (Mg Supplement) 500 Mg Cap 500 Mg PO DAILY 06/03/17 Reported Balance B-100 (Vitamins W/ Lipotropics) 1 Tab Tab 1 Tab PO DAILY 06/03/17 Reported Prilosec (Omeprazole) 20 Mg Capcr 20 Mg PO BID 05/05/17 Reported Zestril (Lisinopril) 40 Mg Tab 40 Mg PO DAILY 05/05/17 Reported Potassium Citrate 10 Meq Tab 10 Meq PO QAM 01/01/17 Reported Zantac (Ranitidine HCl) 150 Mg Tab 150 Mg PO BID PRN 03/05/16 Reported Vital Signs Weight (Kilograms): 107.27 Height (Feet): 5 Height (Inches): 4 Date Time Temp Pulse Resp B/P (MAP) Pulse Ox O2 Delivery O2 Flow Rate FiO2 11/24/17 09:47 36.7 64 20 131/67 (88) 97 Room Air Physical Exam General Appearance: + obese Respiratory/Chest: Respiratory effort: no dyspnea Auscultation: breath sounds normal, CTA except as noted Cardiovascular: Apical Impulse: not displaced Heart Auscultation: RRR, normal S1, normal S2 Abdomen: Bowel Sounds: normal Inspection & Palpation: soft, non-distended Assessment and Plan 52 yo presenting for EGD for thickend esophagus on CT
--- NOTE | 2017-11-24 10:40 | GI REPORT ---
Patient Name: Shruti Byrnes Procedure Date: 11/24/2017 10:08 AM Date of : 1965 Admit Type: Outpatient Age: 52 Gender: Female Attending MD: Rj Graham MD Procedure: Upper GI endoscopy Providers: Rj Graham MD Referring MD: Allan Dupont Indications: Abnormal CT of the GI tract-Thickening of esophagus on CT [id number] Medicines: Monitored Anesthesia Care Complications: No immediate complications. Estimated blood loss: None. Estimated Blood Loss: Estimated blood loss: none. Procedure: Pre-Anesthesia Assessment: - Pre-Anesthesia Assessment: - Prior to the procedure, a History and Physical was performed, and patient medications, allergies and sensitivities were reviewed. The patient's tolerance of previous anesthesia was reviewed. Please see [employer] for complete details. - The risks and benefits of the procedure and the sedation options and risks were discussed with the patient. All questions were answered and informed consent was obtained. - Patient identification and proposed procedure were verified prior to the procedure by the physician and the nurse. The procedure was verified in the pre-procedure area in the procedure room. After obtaining informed consent, the endoscope was passed carefully and meticuously under direct vision and only advanced when the lumen was clearly identified, C02 insuflation was utilized throughout the entirity of the procedure. Throughout the procedure, the patient's blood pressure, pulse, and oxygen saturations were monitored continuously. After obtaining informed consent, the endoscope was passed under direct vision. Throughout the procedure, the patient's blood pressure, pulse, and oxygen saturations were monitored continuously. The scope was introduced through the mouth, and advanced to the second part of duodenum. The upper GI endoscopy was accomplished without difficulty. The patient tolerated the procedure well. Findings: A small hiatal hernia was present. No other significant abnormalities were identified in a careful examination of the esophagus. The entire examined stomach was normal. The examined duodenum was normal. Impression: - Small hiatal hernia. - Normal stomach. - Normal examined duodenum. - No specimens collected. Recommendation: - Written discharge instructions were provided to the patient. - Discharge patient to home (with escort). - Return to referring physician as previously scheduled. - Continue present medications. - Return to referring physician as previously scheduled. - Patient was to have colonoscopy today for screening, however, she did not take a prep. This will need to be rescheduled. Rj Graham MD 11/24/2017 10:39:16 AM This report has been signed electronically. Note Initiated On: 11/24/2017 10:08 AM Number of Addenda: 0 I attest to the content of the Intraoperative Record and orders documented therein, exceptions below {[id number]}
--- NOTE | 2017-11-24 10:51 | Discharge Instructions ---
Endoscopy Patient Instructions Date / Procedure(s) Performed Nov 24, 2017. Colonoscopy, EGD Allergy Information Coded Allergies: Morphine (Verified Allergy, Intermediate, HIVES, 11/19/17) Meperidine (Verified Adverse Reaction, Intermediate, NAUSEA, 11/19/17) Discharge Date / Findings Nov 24, 2017. Findings: A small hiatal hernia was present. No other significant abnormalities were identified in a careful examination of the esophagus. The entire examined stomach was normal. The examined duodenum was normal. Impression: - Small hiatal hernia. - Normal stomach. - Normal examined duodenum. - No specimens collected. Recommendation: - Written discharge instructions were provided to the patient. - Discharge patient to home (with escort). - Return to referring physician as previously scheduled. - Continue present medications. - Return to referring physician as previously scheduled. - Patient was to have colonoscopy today for screening, however, she did not take a prep. This will need to be rescheduled. Provider Instructions Activity Restrictions - No exercising or heavy lifting for 24 hours. - Do not drink alcohol the day of the procedure. - Do not drive a car or operate machinery until the day after the procedure. - Do not make any important decisions or sign important papers in 24 hours after the procedure. Following Day: - Return to full activity which may include returning to work/school. Diet Start your diet with liquids and light foods (jello, soup, juice, toast). Then eat your usual diet if not nauseated. Treatment For Common After Affects For mild abdominal pain, bloating, or excessive gas: - Rest - Eat lightly - Lie on right side Follow-Up Information Follow-up with DR. MARCOS as scheduled Anesthesia Information What You Should Know You have had a procedure that required some medicine to reduce anxiety and discomfort. This treatment is called moderate sedation. After receiving the treatment, you may be sleepy, but you will be able to breathe on your own. The effects of the treatment may last for several hours. Follow these instructions along with Activity/Diet recommendations noted above: * Do NOT do anything where dizziness or clumsiness would be dangerous. * Rest quietly at home today, then you can be up and about tomorrow. * Have a responsible person stay with you the rest of today. * You may have had an I.V. today. If so, you may take the dressing off later today. Recommendations Call your doctor if: * Trouble breathing * Continuous vomiting for more than 24 hours * Temperature above 101 degrees * Severe abdominal pain or bloating * Pain not relieved by pain medicine ordered * There is increased drainage or redness from any incision * A large amount of rectal bleeding greater than 2-3 tablespoons. (If you had a polyp/s removed or have hemorrhoids, a small amount of blood - from the rectum is to be expected.) * You have any unanswered questions or concerns. IN THE EVENT OF A SERIOUS EMERGENCY, GO TO THE NEAREST EMERGENCY ROOM Your discharge instructions were prepared by provider Rj Graham. Patient Instructions Signature Page Shruti Byrnes Patient (or Guardian) Signature/Date: I have read and understand the instructions given to me by my caregivers. Caregiver/RN/Doctor Signature/Date: The above-named patient and/or guardian has received patient instructions on this date. + Original Patient Signature Page (only) stays with chart. Please make copy for patient.
[2017-11-24 11:05] VITALS: BP 115/66; PULSE 71; O2SAT 95
--- NOTE | 2017-11-24 11:12 | Anesthesiology Progress Note ---
Anesthesia Post Op Note Date & Time Nov 24, 2017 at 11:12 Vital Signs Pain Intensity: 0 Vital Signs Past 12 Hours Date Time Temp Pulse Resp B/P (MAP) Pulse Ox O2 Delivery O2 Flow Rate FiO2 11/24/17 11:05 71 20 115/66 (82) 95 Room Air 11/24/17 10:50 64 18 112/50 (70) 94 Room Air 11/24/17 10:35 36.0 71 10 113/48 (69) 94 Room Air 11/24/17 09:47 36.7 64 20 131/67 (88) 97 Room Air Notes Mental Status: alert / awake / arousable, participated in evaluation Pt Amnestic to Procedure: Yes Nausea / Vomiting: adequately controlled Pain: adequately controlled Airway Patency, RR, SpO2: stable & adequate BP & HR: stable & adequate Hydration State: stable & adequate Anesthetic Complications: no major complications apparent
== END | disposition home or self-care (01) ==
LOC: C.GI 08:54
PROVIDERS: ATTEND Internal Medicine
DX: K21.9 Gastro-esophageal reflux disease without esophagitis (principal); I12.9 Hypertensive chronic kidney disease with stage 1 through stage 4 chronic kidney disease, or unspecified chronic kidney disease; K44.9 Diaphragmatic hernia without obstruction or gangrene; G47.33 Obstructive sleep apnea (adult) (pediatric); J45.909 Unspecified asthma, uncomplicated; N18.9 Chronic kidney disease, unspecified; F41.9 Anxiety disorder, unspecified; F32.9 Major depressive disorder, single episode, unspecified; Z80.0 Family history of malignant neoplasm of digestive organs; Z88.5 Allergy status to narcotic agent; Z86.73 Personal history of transient ischemic attack (TIA), and cerebral infarction without residual deficits; Z88.8 Allergy status to other drugs, medicaments and biological substances